=== PATIENT | male | born 1950 | race Hispanic/Latino ===

== ENCOUNTER 2016-05-03 12:30 | Inpatient (IN) | payer OTHER ==
[2016-05-03 12:30] VITALS: BMI 34.2
[2016-05-03] MEDS ORDERED: Vancomycin 1gm in NS 250ml 250 ML IVPB STA (13:39)
[2016-05-03] MEDS ORDERED: Piperacill/Tazo 4.5gm in NS 100 ML IVPB STA (13:39)
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
[2016-05-03 14:41] LABS: ADD MANUAL DIFF? NO
[2016-05-03 14:58] LABS: ALB/GLOB RATIO 0.7 (1.1-1.8); ALKALINE PHOSPHATASE 185 U/L (38-133); ALT/SGPT 20 U/L (7-56); AST/SGOT 33 U/L (15-59); BLOOD UREA NITROGEN 12 mg/dL (7-21); CALCIUM 8.6 mg/dL (8.4-10.5); CARBON DIOXIDE 26 mmol/L (21-33); CHLORIDE 95 mmol/L (98-107); GFR AFRICAN-AMERICAN > 60; GLUCOSE,RANDOM 244 mg/dL (70-110); PHOSPHOROUS 2.8 mg/dL (2.5-4.5); POTASSIUM 4.1 mmol/L (3.6-5.0); SODIUM 130 mmol/L (132-148); TOTAL PROTEIN 7.3 g/dL (5.8-8.3)
[2016-05-03 14:59] LABS: BASO # 0.03 K/mm3 (0.0-2.0); BASO % 0.1 % (0.0-3.0); EOS # 0.5 (0.0-0.7); EOS % 2.3 % (1.5-5.0); GRAN # 17.64 (1.4-6.5); GRAN % 85.5 % (50.0-68.0); HEMATOCRIT 37.4 % (42.0-52.0); LYMPH % 4.7 % (22.0-35.0); MEAN CELL VOLUME 88.6 fL (80.0-105.0); MEAN CORPUSCULAR HEMOGLOBIN 30.8 pg (25.0-35.0); MEAN CORPUSCULAR HGB CONC 34.8 g/dl (31.0-37.0); MONO # 1.5 (0.1-0.6); MONO % 7.4 % (1.0-6.0); PLATELET COUNT 414 10^3/uL (120.0-450.0); RED CELL DISTRIBUTION WIDTH 12.6 % (11.5-14.5); WHITE BLOOD COUNT 20.6 10^3/ul (4.5-11.0)
[2016-05-03 15:05] LABS: INR 1.1 (0.93-1.08); PARTIAL THROMBOPLASTIN TIME 30.7 Seconds (23.7-30.8)
[2016-05-03 16:08] LABS: VENOUS BLOOD PH 7.38 (7.32-7.43)
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
--- NOTE | 2016-05-03 17:22 | RAD ---
HISTORY: Sepsis Patient COMPARISON: 02/05/2016 FINDINGS: LUNGS: There is mild pulmonary venous congestion. There is no focal consolidation PE PLEURA: No significant pleural effusion identified, no pneumothorax apparent. CARDIOVASCULAR: Normal. OSSEOUS STRUCTURES: No significant abnormalities. VISUALIZED UPPER ABDOMEN: Normal. OTHER FINDINGS: None. IMPRESSION: Persistent mild pulmonary venous congestion. No lobar pneumonia.
--- NOTE | 2016-05-03 17:22 | CARD ---
APPROVED REPORT EKG Measurement Heart [id number] <Conclusion> Normal sinus rhythm Normal ECG
--- NOTE | 2016-05-03 17:47 | CT ---
PROCEDURE: CT Neck, Chest, Abdomen and Pelvis with contrast HISTORY: abscess vs. cellulitis to neck right buttock COMPARISON: None. TECHNIQUE: Contrast dose: 150 Omnipaque 350 Radiation dose: Total exam DLP = 2581.34 mGy-cm. FINDINGS: CT OF THE NECK: There is moderate skin thickening and subcutaneous stranding seen at the mid to upper posterior neck. There is heterogeneous subcutaneous density at the midline posterior upper neck measures 3.3 centimeter in the transverse diameter. No evidence of drainable or discrete abscess formation. PHARYNX: Nasopharynx: Unremarkable. Oropharnx: Unremarkable. Hypopharynx: Unremarkable. LYMPH NODES: Unremarkable. VASCULATURE: Unremarkable. GLANDS: Unremarkable. CERVICAL SPINE: Moderate degenerative changes at the mid and lower cervical spine. CT OF THE CHEST: LUNGS: No evidence of acute pathology in the lungs. MEDIASTINUM: Unremarkable thoracic aorta. No aneurysm or dissection. Heart is mildly enlarged. Pulmonary trunk is mildly enlarged. No lymphadenopathy. PLEURA: No pleural fluid. No pneumothorax. BONES: No fracture. No destructive lesion. CT OF THE ABDOMEN AND PELVIS: LIVER: Unremarkable. No mass lesion or ductal dilatation. GALLBLADDER AND BILE DUCTS: Status post cholecystectomy. PANCREAS: Unremarkable. No mass or ductal dilatation. SPLEEN: Mild splenomegaly noted measures up to 14.5 centimeter in the AP diameter. ADRENALS: Unremarkable. KIDNEYS AND URETERS: Nonspecific mild perinephric stranding more prominent on the left side. Mild decrease enhancement of the left kidney compared to the right of uncertain etiology. No evidence of hydronephrosis. BLADDER: Unremarkable. No mass. REPRODUCTIVE: Unremarkable. APPENDIX: No evidence of appendicitis STOMACH AND BOWEL: Unremarkable. No obstruction. No mural thickening. No evidence of acute pathology. PERITONEUM: Unremarkable. No free fluid. No free air. LYMPH NODES: Unremarkable. No enlarged lymph nodes. VASCULATURE: Unremarkable. No aortic aneurysm. BONES: No fracture or focal lesion. OTHER FINDINGS: There is a skin thickening and subcutaneous stranding seen at the medial aspect of the right buttock. There is also large phlegmon at the medial posterior aspect of the right buttock. No evidence of discrete drainable collection in this study. IMPRESSION: Skin and subcutaneous thickening and stranding seen at the posterior mid to upper neck associated with subcutaneous density suggestive of infection/inflammatory process and cellulitis. No definite evidence of discrete abscess formation. Skin thickening and subcutaneous phlegmon at the medial posterior aspect of the right buttock without evidence of drainable fluid collection. The possibility of an early abscess formation is not totally excluded. If indicated follow-up exam is suggested. Mild stranding surrounding the left kidney and slight decreased enhancement of the left kidney compared to the right. Correlate clinically for possible infectious process/pyelonephritis. No evidence of acute pathology in the chest.
[2016-05-03 19:44] LABS: VENOUS BLOOD PH 7.38 (7.32-7.43)
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
[2016-05-03] MEDS: Insulin Reg-LOW-Coverage SC SCH (21:59)
[2016-05-03] MEDS: Albuterol-Ipratrop 3 mg / 0.5 (3 ml) UD IH PRN (22:05)
[2016-05-03] MEDS ORDERED: Influenza Vaccine 45 MCG/0.5 ml IM ONE (22:53)
[2016-05-03] MEDS ORDERED: Pneumococcal 23-Valent Vaccine IM ONE (22:53)
[2016-05-03] MEDS: Piperacillin/Tazobact 3.375 gm 100 ML IVPB SCH (23:49)
[2016-05-04] MEDS ORDERED: Piperacillin/Tazobact 3.375 gm 100 ML IVPB SCH
[2016-05-04] MEDS: Piperacillin/Tazobact 3.375 gm 100 ML IVPB SCH ×2 (05:08→12:24)
[2016-05-04] MEDS: Vancomycin 1gm in NS 250ml 250 ML IVPB SCH ×2 (06:18→19:19)
[2016-05-04 07:09] LABS: ADD MANUAL DIFF? NO
[2016-05-04 07:16] LABS: BASO # 0.03 K/mm3 (0.0-2.0); BASO % 0.2 % (0.0-3.0); EOS # 0.7 (0.0-0.7); EOS % 3.4 % (1.5-5.0); GRAN # 15.87 (1.4-6.5); GRAN % 81.9 % (50.0-68.0); HEMATOCRIT 35.5 % (42.0-52.0); LYMPH # 1.3 (1.2-3.4); LYMPH % 6.9 % (22.0-35.0); MEAN CELL VOLUME 88.5 fL (80.0-105.0); MEAN CORPUSCULAR HEMOGLOBIN 29.4 pg (25.0-35.0); MEAN CORPUSCULAR HGB CONC 33.2 g/dl (31.0-37.0); MEAN PLATELET VOLUME 9.6 fl (7.0-11.0); MONO # 1.5 (0.1-0.6); MONO % 7.6 % (1.0-6.0); PLATELET COUNT 410 10^3/uL (120.0-450.0); RED CELL DISTRIBUTION WIDTH 12.8 % (11.5-14.5); WHITE BLOOD COUNT 19.4 10^3/ul (4.5-11.0)
[2016-05-04 07:30] LABS: ALB/GLOB RATIO 0.8 (1.1-1.8); ALKALINE PHOSPHATASE 177 U/L (38-133); ALT/SGPT 46 U/L (7-56); AST/SGOT 26 U/L (15-59); BILIRUBIN,TOTAL 0.7 mg/dL (0.2-1.3); BLOOD UREA NITROGEN 10 mg/dL (7-21); CALCIUM 8.3 mg/dL (8.4-10.5); CARBON DIOXIDE 28 mmol/L (21-33); GFR AFRICAN-AMERICAN > 60; GLUCOSE,RANDOM 274 mg/dL (70-110); POTASSIUM 4.6 mmol/L (3.6-5.0); SODIUM 133 mmol/L (132-148); TOTAL PROTEIN 6.4 g/dL (5.8-8.3)
[2016-05-04 07:33] LABS: CHLORIDE 97 mmol/L (95-110)
[2016-05-04] MEDS: Budesonide 0.5 mg/2 ml Inhal Susp UD IH SCH ×2 (07:38→21:12)
[2016-05-04] MEDS: Arformoterol 15 mcg/2 ml Inh Sol IH SCH ×2 (07:39→21:12)
[2016-05-04] MEDS ORDERED: Budesonide 0.5 mg/2 ml Inhal Susp UD IH SCH (08:00)
[2016-05-04] MEDS ORDERED: Arformoterol 15 mcg/2 ml Inh Sol IH SCH (08:00)
--- NOTE | 2016-05-04 08:17 | CP.PCM.PN ---
Subjective - Date & Time of Evaluation Date of Evaluation: 05/04/16 Time of Evaluation: 06:40 - Subjective Subjective: Pt seen and evaluated at bedside. Pt claims pain from R buttock remains the same, as well as the posterior neck and ankle. Denies f/c/n/v. Objective - Vital Signs/Intake and Output Vital Signs (last 24 hours): Temp Pulse Resp BP Pulse Ox 99.8 F H 94 H 20 150/64 99 05/03/16 22:36 05/03/16 22:36 05/03/16 22:36 05/03/16 22:36 05/03/16 19:37 Intake and Output: 05/04/16 05/04/16 06:59 18:59 Intake Total 810 Output Total 1050 Balance -240 - Medications Medications: Current Medications Albuterol/Ipratropium (Duoneb 3 Mg/0.5 Mg (3 Ml) Ud) 3 ml IH [id number] PRN PRN Reason: Shortness of Breath Last Admin: 05/03/16 22:05 Dose: 3 ml Arformoterol Tartrate (Brovana) 15 mcg IH [id number] [facility] Last Admin: 05/04/16 07:39 Dose: 15 mcg Budesonide (Pulmicort Respules) 1 mg IH [id number] JT Last Admin: 05/04/16 07:38 Dose: 1 mg Enoxaparin Sodium (Lovenox) 40 mg SC DAILY JT PRN Reason: Protocol Vancomycin HCl (Vancomycin 1gm) 250 mls @ 167 mls/hr IVPB Q12H JT PRN Reason: Protocol Last Admin: 05/04/16 06:18 Dose: 167 mls/hr Piperacillin Sod/Tazobactam Sod (Zosyn 3.375 In Ns 100ml) 100 mls @ 200 mls/hr IVPB Q6 JT PRN Reason: Protocol Stop: 05/11/16 00:01 Last Admin: 05/04/16 05:08 Dose: 200 mls/hr Insulin Human Regular (Humulin R Low) 0 units SC ACHS JT PRN Reason: Protocol Last Admin: 05/03/16 21:59 Dose: 2 units Nystatin (Nystop Topical Powder) 1 gm TOP BID JT Pantoprazole Sodium (Protonix Ec Tab) 40 mg PO DAILY JT Tiotropium [place] (Spiriva) 18 mcg IH DAILY JT - Labs Labs: 05/04/16 06:45 05/04/16 06:45 PT 11.9 Seconds (9.9-11.8) H 05/03/16 14:30 INR 1.10 (0.93-1.08) H 05/03/16 14:30 APTT 30.7 Seconds (23.7-30.8) 05/03/16 14:30 - Additional Findings Additional findings: - Constitutional Appears: No Acute Distress - Eye Exam Eye Exam: EOMI - ENT Exam ENT Exam: Mucous Membranes Moist - Neck Exam Additional comments: Posterior neck: 5 cm area indurated with central area of ulceration, no drainage. - Respiratory Exam Respiratory Exam: NORMAL BREATHING PATTERN - Cardiovascular Exam Cardiovascular Exam: RRR - Rectal Exam Additional comments: 4cm x 2cm x 1.5 cm deep induration and erythema with purulent discharge. Less discharge than day prior. - Extremities Exam Additional comments: 5 cm x 3cm area of erythema, with central induration and minimal fluctuance. Draining clear d/c. - Neurological Exam Neurological exam: Alert, Oriented x3 - Psychiatric Exam Psychiatric exam: Normal Affect, Normal Mood - Skin Skin Exam: Warm Assessment and Plan - Assessment and Plan (Free Text) Plan: 65 yo M w/PMHx of DM, one week history of R buttock abscess, neck sebaceous cyst. Initial presentation: Code sepsis, WBC 20.6, lactate 2.0, T 100.6F.: CT neck/chest/abd/pelvis (05/03/2016): skin and subcutaneous thickening and stranding posterior neck suggestive of cellulitis, no discrete abscess. skin thickening and phlegmon of posterior aspect of R buttock with early abscess formation (see full report) abx pending wound cx Monitor labs and trend fever. WBC today decreased to 19.4 ID consult warm compress q8h OR tomorrow Further recs as per Dr. Bernard Lewis PGY-1
[2016-05-04] MEDS: Insulin Reg-LOW-Coverage SC SCH ×4 (08:24→21:59)
[2016-05-04] MEDS ORDERED: Oxycodone/Acetaminophen 5/325 mg Tab PO PRN (08:31)
[2016-05-04] MEDS: Nystatin 100,000 Units/gm Topical Pow(15 gm) TOP SCH ×2 (09:39→17:45)
[2016-05-04] MEDS: Enoxaparin 40 mg Syringe SC SCH (09:39)
[2016-05-04] MEDS: Pantoprazole 40 mg EC Tab PO SCH (09:40)
[2016-05-04] MEDS: Tiotropium 18 mcg Cap For Inhalation IH SCH (12:25)
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
--- NOTE | 2016-05-04 16:22 | CP.PCM.PN ---
<Grayson Patel - Last Filed: 05/04/16 18:19> Subjective - Date & Time of Evaluation Date of Evaluation: 05/04/16 Time of Evaluation: 07:30 - Subjective Subjective: Dr. Patel PGY 1 Hospitalist Note Patient seen and evaluated at bedside. He is resting comfortably in bed. He reports having some tenderness on the back of his neck and buttock. He notes having lesions on his body from moving into his sister's home. He states it is a clean place and has not noticed any insects or rodents. He reports being hungry as he has been kept NPO for possible abscess drainage. He denies any fever, chills, nausea, vomiting, chest pain, SOB, or headache. When asked about diet, he says reports eating normally and has not been told he needs to be on a diabetic diet. A 12 point review of systems was performed and negative except where indicated above. Objective - Vital Signs/Intake and Output Vital Signs (last 24 hours): Temp Pulse Resp BP Pulse Ox 98.6 F 87 20 135/74 95 05/04/16 15:57 05/04/16 15:57 05/04/16 15:57 05/04/16 15:57 05/04/16 15:57 Intake and Output: 05/04/16 05/04/16 06:59 18:59 Intake Total 810 360 Output Total 1050 500 Balance -240 -140 - Medications Medications: Current Medications Albuterol/Ipratropium (Duoneb 3 Mg/0.5 Mg (3 Ml) Ud) 3 ml IH [id number] PRN PRN Reason: Shortness of Breath Last Admin: 05/03/16 22:05 Dose: 3 ml Arformoterol Tartrate (Brovana) 15 mcg IH [id number] JT Last Admin: 05/04/16 07:39 Dose: 15 mcg Budesonide (Pulmicort Respules) 1 mg IH [id number] JT Last Admin: 05/04/16 07:38 Dose: 1 mg Enoxaparin Sodium (Lovenox) 40 mg SC DAILY JT PRN Reason: Protocol Last Admin: 05/04/16 09:39 Dose: Not Given Vancomycin HCl (Vancomycin 1gm) 250 mls @ 167 mls/hr IVPB Q12H JT PRN Reason: Protocol Last Admin: 05/04/16 06:18 Dose: 167 mls/hr Ampicillin Sodium/Sulbactam (Sodium 3 gm/ Sodium Chloride) 100 mls @ 200 mls/ hr IVPB Q6 JT PRN Reason: Protocol Insulin Human Regular (Humulin R Low) 0 units SC ACHS JT PRN Reason: Protocol Last Admin: 05/04/16 12:25 Dose: 3 units Nystatin (Nystop Topical Powder) 1 gm TOP BID JT Last Admin: 05/04/16 09:39 Dose: 1 gm Oxycodone/Acetaminophen (Percocet 5/325 Mg Tab) 1 tab PO Q4H PRN PRN Reason: Pain, moderate (4-7) Stop: 05/07/16 08:32 Pantoprazole Sodium (Protonix Ec Tab) 40 mg PO DAILY [facility] Last Admin: 05/04/16 09:40 Dose: Not Given Tiotropium [place] (Spiriva) 18 mcg IH DAILY [facility] Last Admin: 05/04/16 12:25 Dose: 18 mcg - Labs Labs: 05/04/16 06:45 05/04/16 06:45 PT 11.9 Seconds (9.9-11.8) H 05/03/16 14:30 INR 1.10 (0.93-1.08) H 05/03/16 14:30 APTT 30.7 Seconds (23.7-30.8) 05/03/16 14:30 - Constitutional Appears: Non-toxic, No Acute Distress - Head Exam Head Exam: ATRAUMATIC. absent: NORMAL INSPECTION (cellulitic, fluctuant area on posterior of head and neck) - Eye Exam Eye Exam: EOMI, Normal appearance, PERRL Pupil Exam: NORMAL ACCOMODATION, PERRL - ENT Exam ENT Exam: Mucous Membranes Moist. absent: Normal Oropharynx (poor dentition) - Neck Exam Neck Exam: Tenderness (fluctuant are on neck). absent: Normal Inspection ( cellulitic, fluctuant area on posterior of head and neck) - Respiratory Exam Respiratory Exam: Clear to Ausculation Bilateral, NORMAL BREATHING PATTERN. absent: Rales, Rhonchi, Wheezes - Cardiovascular Exam Cardiovascular Exam: REGULAR RHYTHM, +S1, +S2 - GI/Abdominal Exam GI & Abdominal Exam: Soft, Normal Bowel Sounds. absent: Tenderness - Extremities Exam Extremities Exam: Normal Capillary Refill. absent: Normal Inspection (abscess on right buttock cleaned and dressed, multiple abrasions on hands and legs, draining abscess on right hand.), Tenderness - Back Exam Back Exam: absent: NORMAL INSPECTION (multple erythemetous lesions on back), tenderness - Neurological Exam Neurological Exam: Alert, Awake, CN II-XII Intact, Oriented x3 - Psychiatric Exam Psychiatric exam: Normal Affect, Normal Mood - Skin Skin Exam: Rash (around groin), Warm Assessment and Plan - Assessment and Plan (Free Text) Assessment: 65 yo male ith PMH of asthma, copd, emphysema, dm presented to ED with sepsis 2/ 2 multiple skin abscess with hyperglycemia. CT neck, chest, abd, pelvis showed skin and subcutaneous thickening and stranding posterior neck suggestive of cellulitis, no discrete abscess. skin thickening and phlegmon of posterior aspect of R buttock with early abscess formation. Plan: 1. sepsis 2/2 mutiple skin abscess * ID consulted help appreciated * sugery consulted, help appreciated * leukocytosis of 19.4 today * CT neck, chest, abdm pelvis- skin and subcutaneous thickening and stranding posterior neck suggestive of cellulitis, no discrete abscess. skin thickening and phlegmon of posterior aspect of R buttock with early abscess formation [ see full report] * continue zosyn and vanco * warm compresses * procalcitonin wnl * HIV non reactive * wound cultures show staph aureus growth * NPO after midnight for OR tomorrow 2. DM/ hyperglycemia * ISSS-low * accuchecks ACHS * hgbA1c 11.3 * counselled on importance of medication and diet compliance 3. tinea cruris * nystain powder 4. asthma, COPD, emphysema * cont home meds advair and spiriva * start duoneb q6 prn 5. ppx * protonix * lovenox SX Assessment and plan discussed with attending physician <Beverly Chand - Last Filed: 05/05/16 17:32> Objective - Vital Signs/Intake and Output Vital Signs (last 24 hours): Temp Pulse Resp BP Pulse Ox 98.6 F 76 12 155/89 H 96 05/05/16 14:40 05/05/16 14:40 05/05/16 14:40 05/05/16 14:40 05/05/16 14:40 Intake and Output: 05/05/16 05/05/16 06:59 18:59 Intake Total 720 420 Output Total 1600 400 Balance -880 20 - Medications Medications: Current Medications Albuterol/Ipratropium (Duoneb 3 Mg/0.5 Mg (3 Ml) Ud) 3 ml IH [id number] PRN PRN Reason: Shortness of Breath Last Admin: 05/03/16 22:05 Dose: 3 ml Arformoterol Tartrate (Brovana) 15 mcg IH [id number] [facility] Last Admin: 05/05/16 09:29 Dose: 15 mcg Budesonide (Pulmicort Respules) 1 mg IH [id number] [facility] Last Admin: 05/05/16 09:29 Dose: 1 mg Enoxaparin Sodium (Lovenox) 40 mg SC DAILY [facility] PRN Reason: Protocol Last Admin: 05/05/16 09:03 Dose: Not Given Vancomycin HCl (Vancomycin 1gm) 250 mls @ 167 mls/hr IVPB Q12H [facility] PRN Reason: Protocol Last Admin: 05/05/16 07:35 Dose: 167 mls/hr Insulin Human Regular (Humulin R Med) 0 units SC ACHS [facility] PRN Reason: Protocol Last Admin: 05/05/16 16:49 Dose: 5 units Morphine Sulfate (Morphine) 4 mg IVP Q4H PRN PRN Reason: Pain, severe (8-10) Mupirocin (Bactroban Ointment) 0 gm NS BID [facility] Stop: 05/10/16 10:01 Nystatin (Nystop Topical Powder) 0 gm TOP BID [facility] Oxycodone/Acetaminophen (Percocet 5/325 Mg Tab) 1 tab PO Q4H PRN PRN Reason: Pain, moderate (4-7) Stop: 05/07/16 08:32 Pantoprazole Sodium (Protonix Ec Tab) 40 mg PO DAILY [facility] Last Admin: 05/05/16 09:04 Dose: Not Given Tiotropium [place] (Spiriva) 18 mcg IH DAILY [facility] Last Admin: 05/05/16 16:50 Dose: 18 mcg - Labs Labs: 05/05/16 06:50 05/05/16 06:50 PT 11.9 Seconds (9.9-11.8) H 05/03/16 14:30 INR 1.10 (0.93-1.08) H 05/03/16 14:30 APTT 30.7 Seconds (23.7-30.8) 05/03/16 14:30 Attending/Attestation - Attestation I have personally seen and examined this patient.: Yes I have fully participated in the care of the patient.: Yes I have reviewed all pertinent clinical information, including history, physical exam and plan: Yes Notes (Text): I have seen and examined patient at bedside with the resident. Agree with the above note with the following additions/ exceptions: This is 65 year old male with obesity, uncontrolled DM-2, non compliance with medications, asthma, copd, cholecystectomy who got admitted for multiple skin lesions including carbuncle on the nape of neck and right buttocks and cellulitis on right thumb. He failed outpatient cipro and warm compresses. PMD advised the patient to come to ED. CT neck, chest, abdomen, pelvis showed cellulitis and early abscess formation. ID and surgery consult appreciated. Plan for possible I&D. HV is negative. PWound culture is growing staph aureus. Continue vanco and unasyn. Continue nystatn powder for tinea cruris. HBA1C is 11.3. Diabetic education provided by me. Will order for official diabetic teaching. He needs to learn how to self inject insulin. Start medium ISS coverage. Dr Beverly Chand
[2016-05-04] MEDS: Ampicillin/Sulbactam 3 GM in Sodium Chloride 0.9% 100 ML IVPB SCH ×2 (18:10→23:24)
[2016-05-05] MEDS: Ampicillin/Sulbactam 3 GM in Sodium Chloride 0.9% 100 ML IVPB SCH (05:19)
[2016-05-05 07:08] LABS: ADD MANUAL DIFF? NO
[2016-05-05 07:14] LABS: BASO # 0.04 K/mm3 (0.0-2.0); BASO % 0.3 % (0.0-3.0); EOS # 0.9 (0.0-0.7); EOS % 5.8 % (1.5-5.0); GRAN # 12.02 (1.4-6.5); GRAN % 76.1 % (50.0-68.0); HEMATOCRIT 36.1 % (42.0-52.0); LYMPH # 1.6 (1.2-3.4); MEAN CELL VOLUME 88.9 fL (80.0-105.0); MEAN CORPUSCULAR HEMOGLOBIN 29.6 pg (25.0-35.0); MEAN CORPUSCULAR HGB CONC 33.2 g/dl (31.0-37.0); MEAN PLATELET VOLUME 9.8 fl (7.0-11.0); MONO # 1.2 (0.1-0.6); MONO % 7.8 % (1.0-6.0); PLATELET COUNT 439 10^3/uL (120.0-450.0); RED CELL DISTRIBUTION WIDTH 12.6 % (11.5-14.5); WHITE BLOOD COUNT 15.8 10^3/ul (4.5-11.0)
[2016-05-05 07:29] LABS: ALB/GLOB RATIO 0.7 (1.1-1.8); ALKALINE PHOSPHATASE 181 U/L (38-133); ALT/SGPT 31 U/L (7-56); AST/SGOT 28 U/L (15-59); BILIRUBIN,TOTAL 0.4 mg/dL (0.2-1.3); BLOOD UREA NITROGEN 12 mg/dL (7-21); CALCIUM 8.3 mg/dL (8.4-10.5); CARBON DIOXIDE 28 mmol/L (21-33); CHLORIDE 98 mmol/L (95-110); GFR AFRICAN-AMERICAN > 60; GLUCOSE,RANDOM 291 mg/dL (70-110); SODIUM 134 mmol/L (132-148); TOTAL PROTEIN 6.5 g/dL (5.8-8.3)
[2016-05-05 07:34] LABS: POTASSIUM 4.3 mmol/L (3.6-5.0)
[2016-05-05] MEDS: Vancomycin 1gm in NS 250ml 250 ML IVPB SCH ×2 (07:35→19:45)
[2016-05-05] MEDS: Insulin Reg-LOW-Coverage SC SCH (08:46)
[2016-05-05] MEDS: Enoxaparin 40 mg Syringe SC SCH (09:03)
[2016-05-05] MEDS: Pantoprazole 40 mg EC Tab PO SCH (09:04)
[2016-05-05] MEDS: Budesonide 0.5 mg/2 ml Inhal Susp UD IH SCH ×2 (09:29→20:07)
[2016-05-05] MEDS: Arformoterol 15 mcg/2 ml Inh Sol IH SCH ×2 (09:29→20:07)
[2016-05-05] MEDS: Nystatin 100,000 Units/gm Topical Pow(15 gm) TOP SCH ×2 (11:00→19:06)
--- NOTE | 2016-05-05 11:43 | CP.PCM.PN ---
<Grayson Patel - Last Filed: 05/05/16 13:44> Subjective - Date & Time of Evaluation Date of Evaluation: 05/05/16 Time of Evaluation: 07:45 - Subjective Subjective: Dr. Patel PGY 1 Hospitalist note Patient seen and evaluated at bedside. He states he is feeling well though his buttock remains uncomfortable. He denies any fever or chills. He says the wound on his buttock continues to drain and he is awaiting surgery to take him to the OR. He denies any discomfort on the back of his neck. He requests more warm compresses for his neck. Also, he notes he had some shortness of breath last night which was alleviated by a breathing treatment. While in the patient' s room, I noticed he had candy bars and sodas. A long discussion was performed with him about the importance of diabetic diet and the need for him to start insulin. After the discussion, we agreed he needs to meet with a conservation educator. A 12 point review of systems was performed and negative except where indicated above. Objective - Vital Signs/Intake and Output Vital Signs (last 24 hours): Temp Pulse Resp BP Pulse Ox 98.7 F 74 20 146/83 97 05/05/16 08:00 05/05/16 08:00 05/05/16 08:00 05/05/16 08:00 05/05/16 08:00 Intake and Output: 05/05/16 05/05/16 06:59 18:59 Intake Total 720 420 Output Total 1600 400 Balance -880 20 - Medications Medications: Current Medications Albuterol/Ipratropium (Duoneb 3 Mg/0.5 Mg (3 Ml) Ud) 3 ml IH [id number] PRN PRN Reason: Shortness of Breath Last Admin: 05/03/16 22:05 Dose: 3 ml Arformoterol Tartrate (Brovana) 15 mcg IH [id number] [facility] Last Admin: 05/05/16 09:29 Dose: 15 mcg Budesonide (Pulmicort Respules) 1 mg IH [id number] [facility] Last Admin: 05/05/16 09:29 Dose: 1 mg Enoxaparin Sodium (Lovenox) 40 mg SC DAILY [facility] PRN Reason: Protocol Last Admin: 05/05/16 09:03 Dose: Not Given Vancomycin HCl (Vancomycin 1gm) 250 mls @ 167 mls/hr IVPB Q12H JT PRN Reason: Protocol Last Admin: 05/05/16 07:35 Dose: 167 mls/hr Insulin Human Regular (Humulin R Med) 0 units SC ACHS JT PRN Reason: Protocol Nystatin (Nystop Topical Powder) 1 gm TOP BID [facility] Last Admin: 05/04/16 17:45 Dose: 1 gm Oxycodone/Acetaminophen (Percocet 5/325 Mg Tab) 1 tab PO Q4H PRN PRN Reason: Pain, moderate (4-7) Stop: 05/07/16 08:32 Pantoprazole Sodium (Protonix Ec Tab) 40 mg PO DAILY [facility] Last Admin: 05/05/16 09:04 Dose: Not Given Tiotropium [place] (Spiriva) 18 mcg IH DAILY [facility] Last Admin: 05/04/16 12:25 Dose: 18 mcg - Labs Labs: 05/05/16 06:50 05/05/16 06:50 PT 11.9 Seconds (9.9-11.8) H 05/03/16 14:30 INR 1.10 (0.93-1.08) H 05/03/16 14:30 APTT 30.7 Seconds (23.7-30.8) 05/03/16 14:30 - Constitutional Appears: Non-toxic, No Acute Distress - Head Exam Head Exam: ATRAUMATIC. absent: NORMAL INSPECTION (erythematous, swollen area on back of neck) - Eye Exam Eye Exam: EOMI, Normal appearance, PERRL Pupil Exam: NORMAL ACCOMODATION, PERRL - ENT Exam ENT Exam: Mucous Membranes Moist. absent: Normal Oropharynx (poor dentition) - Neck Exam Neck Exam: absent: Normal Inspection (swelling on posterior of neck) - Respiratory Exam Respiratory Exam: Clear to Ausculation Bilateral, NORMAL BREATHING PATTERN. absent: Rales, Rhonchi, Wheezes - Cardiovascular Exam Cardiovascular Exam: REGULAR RHYTHM, +S1, +S2. absent: Gallop, Rubs, Murmur - GI/Abdominal Exam GI & Abdominal Exam: Soft, Normal Bowel Sounds. absent: Tenderness - Extremities Exam Extremities Exam: absent: Normal Inspection (multiple non healing lesions) - Back Exam Back Exam: absent: NORMAL INSPECTION (drainging abscess on right buttock) - Neurological Exam Neurological Exam: Alert, Awake, CN II-XII Intact, Oriented x3 - Psychiatric Exam Psychiatric exam: Normal Affect, Normal Mood - Skin Skin Exam: Dry, Warm Assessment and Plan - Assessment and Plan (Free Text) Assessment: 65 yo male ith PMH of asthma, copd, emphysema, dm presented to ED with sepsis 2/ 2 multiple skin abscess with hyperglycemia. CT neck, chest, abd, pelvis showed skin and subcutaneous thickening and stranding posterior neck suggestive of cellulitis, no discrete abscess. skin thickening and phlegmon of posterior aspect of R buttock with early abscess formation. Plan: 1. sepsis 2/2 mutiple skin abscess * ID consulted help appreciated * sugery consulted, help appreciated * leukocytosis of 19.4 today * CT neck, chest, abdm pelvis- skin and subcutaneous thickening and stranding posterior neck suggestive of cellulitis, no discrete abscess. skin thickening and phlegmon of posterior aspect of R buttock with early abscess formation [ see full report] * continue unisyn and vanco * warm compresses * procalcitonin wnl * HIV non reactive * wound cultures show MRSA growth * I&D by surgery later today * pain control 2. DM/ hyperglycemia * ISSS-med * accuchecks ACHS * hgbA1c 11.3 * counselled on importance of medication and diet compliance * start NPH 70/30 5U SC Q12H * diabetic counseling ordered 3. tinea cruris * nystain powder 4. asthma, COPD, emphysema * cont home meds advair and spiriva * cont duoneb q6 prn 5. ppx * protonix * lovenox SX Assessment and plan discussed with attending physician <Beverly Chand - Last Filed: 05/05/16 17:34> Objective - Vital Signs/Intake and Output Vital Signs (last 24 hours): Temp Pulse Resp BP Pulse Ox 98 F 80 20 113/57 L 96 05/05/16 16:00 05/05/16 16:00 05/05/16 16:00 05/05/16 16:00 05/05/16 16:00 Intake and Output: 05/05/16 05/05/16 06:59 18:59 Intake Total 720 420 Output Total 1600 400 Balance -880 20 - Medications Medications: Current Medications Albuterol/Ipratropium (Duoneb 3 Mg/0.5 Mg (3 Ml) Ud) 3 ml IH [id number] PRN PRN Reason: Shortness of Breath Last Admin: 05/03/16 22:05 Dose: 3 ml Arformoterol Tartrate (Brovana) 15 mcg IH [id number] [facility] Last Admin: 05/05/16 09:29 Dose: 15 mcg Budesonide (Pulmicort Respules) 1 mg IH [id number] [facility] Last Admin: 05/05/16 09:29 Dose: 1 mg Enoxaparin Sodium (Lovenox) 40 mg SC DAILY [facility] PRN Reason: Protocol Last Admin: 05/05/16 09:03 Dose: Not Given Vancomycin HCl (Vancomycin 1gm) 250 mls @ 167 mls/hr IVPB Q12H JT PRN Reason: Protocol Last Admin: 05/05/16 07:35 Dose: 167 mls/hr Insulin Human Regular (Humulin R Med) 0 units SC ACHS [facility] PRN Reason: Protocol Last Admin: 05/05/16 16:49 Dose: 5 units Morphine Sulfate (Morphine) 4 mg IVP Q4H PRN PRN Reason: Pain, severe (8-10) Mupirocin (Bactroban Ointment) 0 gm NS BID [facility] Stop: 05/10/16 10:01 Nystatin (Nystop Topical Powder) 0 gm TOP BID [facility] Oxycodone/Acetaminophen (Percocet 5/325 Mg Tab) 1 tab PO Q4H PRN PRN Reason: Pain, moderate (4-7) Stop: 05/07/16 08:32 Pantoprazole Sodium (Protonix Ec Tab) 40 mg PO DAILY [facility] Last Admin: 05/05/16 09:04 Dose: Not Given Tiotropium [place] (Spiriva) 18 mcg IH DAILY [facility] Last Admin: 05/05/16 16:50 Dose: 18 mcg - Labs Labs: 05/05/16 06:50 05/05/16 06:50 PT 11.9 Seconds (9.9-11.8) H 05/03/16 14:30 INR 1.10 (0.93-1.08) H 05/03/16 14:30 APTT 30.7 Seconds (23.7-30.8) 05/03/16 14:30 Attending/Attestation - Attestation I have personally seen and examined this patient.: Yes I have fully participated in the care of the patient.: Yes I have reviewed all pertinent clinical information, including history, physical exam and plan: Yes Notes (Text): I have seen and examined patient at bedside with the resident. Agree with the above note with the following additions/ exceptions: This is 65 year old male with obesity, uncontrolled DM-2, non compliance with medications, asthma, copd, cholecystectomy who got admitted for multiple skin lesions including carbuncle on the nape of neck and right buttocks and cellulitis on right thumb. He failed outpatient cipro and warm compresses. CT neck, chest, abdomen, pelvis showed cellulitis and early abscess formation. ID and surgery consult appreciated. Plan for I&D today. HV is negative. Wound culture is growing staph aureus. Continue vanco and unasyn. Continue nystatin powder for tinea cruris. HBA1C is 11.3. Diabetic education provided by me. Ordered official diabetic teaching. He needs to learn how to self inject insulin. Start medium ISS coverage. Will start humilin 70/30 after his I&D. Upon discharge patient will follow up with Dr Vallecillo. Dr Beverly Chand
[2016-05-05] MEDS: Insulin Reg-MEDIUM-Coverage SC SCH ×3 (12:00→23:00)
[2016-05-05] MEDS ORDERED: Propofol 10 mg/ml Inj (20 ML) ONE ×2 (12:20→12:39)
[2016-05-05] MEDS ORDERED: Lidocaine 1% Inj (20ml) ONE (12:22)
--- NOTE | 2016-05-05 13:10 | PCM.SURG1 ---
Surgeon's Initial Post Op Note - Surgeon's Notes Surgeon: Dr. Wagner Dietary Cook: Dr. Leiva PGY1 Type of Anesthesia: MAC Pre-Operative Diagnosis: R gluteal abscess Operative Findings: see dictation Post-Operative Diagnosis: same Operation Performed: Incision and drainage of Right gluteal abscess Specimen/Specimens Removed: none Estimated Blood Loss: EBL {In ML}: 10 Blood Products Given: N/A Drains Used: [place] (x4) Post-Op Condition: Good Date of Surgery/Procedure: 05/05/16 Time of Surgery/Procedure: 12:30
[2016-05-05] MEDS ORDERED: HYDROmorphone 0.5 mg/0.5 ml ISec IVP PRN (13:14)
[2016-05-05] MEDS ORDERED: Lactated Ringer's 1,000 ML IV SCH (13:15)
[2016-05-05] MEDS ORDERED: Morphine 4 mg/ml ISec IVP PRN (13:19)
[2016-05-05] MEDS ORDERED: HYDROmorphone 0.5 mg/0.5 ml ISec ONE (14:04)
[2016-05-05] MEDS ORDERED: HYDROmorphone 0.5 mg/0.5 ml ISec IVP ONE (14:07)
--- NOTE | 2016-05-05 15:09 | CP.PCM.PN ---
Subjective - Date & Time of Evaluation Date of Evaluation: 05/05/16 Time of Evaluation: 11:05 - Subjective Subjective: Patient is comfortable in bed, not in distress, less pain in the gluteal area. Objective - Vital Signs/Intake and Output Vital Signs (last 24 hours): Temp Pulse Resp BP Pulse Ox 98.7 F 74 20 146/83 97 05/05/16 08:00 05/05/16 08:00 05/05/16 08:00 05/05/16 08:00 05/05/16 08:00 Intake and Output: 05/05/16 05/05/16 06:59 18:59 Intake Total 720 420 Output Total 1600 400 Balance -880 20 - Medications Medications: Current Medications Albuterol/Ipratropium (Duoneb 3 Mg/0.5 Mg (3 Ml) Ud) 3 ml IH [id number] PRN PRN Reason: Shortness of Breath Last Admin: 05/03/16 22:05 Dose: 3 ml Arformoterol Tartrate (Brovana) 15 mcg IH [id number] [facility] Last Admin: 05/05/16 09:29 Dose: 15 mcg Budesonide (Pulmicort Respules) 1 mg IH [id number] [facility] Last Admin: 05/05/16 09:29 Dose: 1 mg Enoxaparin Sodium (Lovenox) 40 mg SC DAILY [facility] PRN Reason: Protocol Last Admin: 05/05/16 09:03 Dose: Not Given Vancomycin HCl (Vancomycin 1gm) 250 mls @ 167 mls/hr IVPB Q12H JT PRN Reason: Protocol Last Admin: 05/05/16 07:35 Dose: 167 mls/hr Insulin Human Regular (Humulin R Med) 0 units SC ACHS [facility] PRN Reason: Protocol Nystatin (Nystop Topical Powder) 1 gm TOP BID [facility] Last Admin: 05/04/16 17:45 Dose: 1 gm Oxycodone/Acetaminophen (Percocet 5/325 Mg Tab) 1 tab PO Q4H PRN PRN Reason: Pain, moderate (4-7) Stop: 05/07/16 08:32 Pantoprazole Sodium (Protonix Ec Tab) 40 mg PO DAILY [facility] Last Admin: 05/05/16 09:04 Dose: Not Given Tiotropium [place] (Spiriva) 18 mcg IH DAILY [facility] Last Admin: 05/04/16 12:25 Dose: 18 mcg - Labs Labs: 05/05/16 06:50 05/05/16 06:50 PT 11.9 Seconds (9.9-11.8) H 05/03/16 14:30 INR 1.10 (0.93-1.08) H 05/03/16 14:30 APTT 30.7 Seconds (23.7-30.8) 05/03/16 14:30 - Constitutional Appears: Non-toxic, No Acute Distress - Head Exam Head Exam: NORMAL INSPECTION - Neck Exam Neck Exam: absent: Lymphadenopathy, Meningismus - Respiratory Exam Respiratory Exam: Decreased Breath Sounds - Cardiovascular Exam Cardiovascular Exam: +S1, +S2 - GI/Abdominal Exam GI & Abdominal Exam: Soft. absent: Tenderness Assessment and Plan - Assessment and Plan (Free Text) Plan: Assessment Sepsis secondary to gluteal abcess on the right in a patient with a history of skin abscesses, growing methicilin-resistant Staph aureus DM COPD HTN S/P cholecystectomy obesity with BMI 34 Plan Follow up plan for I and D; continue Vancomycin; will order BActroban for the nares Will follow clinically
[2016-05-05] MEDS: Tiotropium 18 mcg Cap For Inhalation IH SCH (16:50)
[2016-05-06] MEDS: Vancomycin 1gm in NS 250ml 250 ML IVPB SCH ×2 (05:49→17:45)
[2016-05-06 07:50] LABS: ADD MANUAL DIFF? NO
[2016-05-06 08:03] LABS: ALB/GLOB RATIO 0.7 (1.1-1.8); ALKALINE PHOSPHATASE 175 U/L (38-133); ALT/SGPT 28 U/L (7-56); AST/SGOT 24 U/L (15-59); BILIRUBIN,TOTAL 0.4 mg/dL (0.2-1.3); BLOOD UREA NITROGEN 10 mg/dL (7-21); CALCIUM 8.5 mg/dL (8.4-10.5); CARBON DIOXIDE 31 mmol/L (21-33); CHLORIDE 97 mmol/L (95-110); GFR AFRICAN-AMERICAN > 60; GLUCOSE,RANDOM 229 mg/dL (70-110); POTASSIUM 4.6 mmol/L (3.6-5.0); SODIUM 135 mmol/L (132-148); TOTAL PROTEIN 6.9 g/dL (5.8-8.3)
[2016-05-06 08:08] LABS: BASO # 0.03 K/mm3 (0.0-2.0); BASO % 0.2 % (0.0-3.0); EOS % 7.1 % (1.5-5.0); GRAN # 10.52 (1.4-6.5); GRAN % 72.6 % (50.0-68.0); HEMATOCRIT 37.9 % (42.0-52.0); MEAN CELL VOLUME 89.4 fL (80.0-105.0); MEAN CORPUSCULAR HEMOGLOBIN 29.2 pg (25.0-35.0); MEAN CORPUSCULAR HGB CONC 32.7 g/dl (31.0-37.0); MEAN PLATELET VOLUME 9.9 fl (7.0-11.0); MONO # 0.9 (0.1-0.6); MONO % 6.1 % (1.0-6.0); PLATELET COUNT 453 10^3/uL (120.0-450.0); RED CELL DISTRIBUTION WIDTH 12.6 % (11.5-14.5); WHITE BLOOD COUNT 14.5 10^3/ul (4.5-11.0)
[2016-05-06] MEDS: Insulin Reg-MEDIUM-Coverage SC SCH ×4 (08:26→23:06)
[2016-05-06] MEDS: Arformoterol 15 mcg/2 ml Inh Sol IH SCH ×2 (09:30→21:29)
[2016-05-06] MEDS: Budesonide 0.5 mg/2 ml Inhal Susp UD IH SCH ×2 (09:30→21:25)
[2016-05-06] MEDS: Tiotropium 18 mcg Cap For Inhalation IH SCH (10:27)
[2016-05-06] MEDS: Pantoprazole 40 mg EC Tab PO SCH (10:27)
[2016-05-06] MEDS: Enoxaparin 40 mg Syringe SC SCH (10:28)
[2016-05-06] MEDS: Nystatin 100,000 Units/gm Topical Pow(15 gm) TOP SCH ×2 (10:28→17:45)
--- NOTE | 2016-05-06 12:56 | CP.PCM.PN ---
Subjective - Date & Time of Evaluation Date of Evaluation: 05/06/16 Time of Evaluation: 08:45 - Subjective Subjective: General Surgery Dr. Wagner Pt S&E @bedside. I&D performed yesterday in OR. pt tolerated procedure well. NAEO. denies pain, F/C, N/V. tolerating diet. Objective - Vital Signs/Intake and Output Vital Signs (last 24 hours): Temp Pulse Resp BP Pulse Ox 98.4 F 75 20 156/91 H 97 05/06/16 07:30 05/06/16 07:30 05/06/16 07:30 05/06/16 07:30 05/06/16 07:30 Intake and Output: 05/06/16 05/06/16 06:59 18:59 Intake Total 900 Output Total 1550 Balance -650 - Medications Medications: Current Medications Albuterol/Ipratropium (Duoneb 3 Mg/0.5 Mg (3 Ml) Ud) 3 ml IH [id number] PRN PRN Reason: Shortness of Breath Last Admin: 05/03/16 22:05 Dose: 3 ml Arformoterol Tartrate (Brovana) 15 mcg IH [id number] [facility] Last Admin: 05/06/16 09:30 Dose: 15 mcg Budesonide (Pulmicort Respules) 1 mg IH [id number] [facility] Last Admin: 05/06/16 09:30 Dose: 0.5 mg Enoxaparin Sodium (Lovenox) 40 mg SC DAILY [facility] PRN Reason: Protocol Last Admin: 05/06/16 10:28 Dose: 40 mg Vancomycin HCl (Vancomycin 1gm) 250 mls @ 167 mls/hr IVPB Q12H JT PRN Reason: Protocol Last Admin: 05/06/16 05:49 Dose: 167 mls/hr Insulin Human Regular (Humulin R Med) 0 units SC ACHS JT PRN Reason: Protocol Last Admin: 05/06/16 12:29 Dose: 3 units Morphine Sulfate (Morphine) 4 mg IVP Q4H PRN PRN Reason: Pain, severe (8-10) Mupirocin (Bactroban Ointment) 0 gm NS BID [facility] Stop: 05/10/16 10:01 Last Admin: 05/06/16 10:28 Dose: 1 applic Nystatin (Nystop Topical Powder) 0 gm TOP BID [facility] Last Admin: 05/06/16 10:28 Dose: 1 applic Oxycodone/Acetaminophen (Percocet 5/325 Mg Tab) 1 tab PO Q4H PRN PRN Reason: Pain, moderate (4-7) Stop: 05/07/16 08:32 Pantoprazole Sodium (Protonix Ec Tab) 40 mg PO DAILY [facility] Last Admin: 05/06/16 10:27 Dose: 40 mg Tiotropium [place] (Spiriva) 18 mcg IH DAILY [facility] Last Admin: 05/06/16 10:27 Dose: 18 mcg - Labs Labs: 05/06/16 07:35 05/06/16 07:35 Laboratory Tests 05/06/16 07:35 Calcium 8.5 Total Bilirubin 0.4 AST 24 ALT 28 Alkaline Phosphatase 175 H Total Protein 6.9 Albumin 2.9 L Microbiology 05/03/16 16:45 Abscess - Buttock-Left Gram Stain - Final 05/03/16 16:45 Abscess - Buttock-Left Wound Culture - Final Methicillin Resistant S Aureus 05/03/16 16:25 Blood Blood Culture - Preliminary 05/03/16 16:25 Blood NO GROWTH AFTER 48 HOURS 05/03/16 13:55 Blood Blood Culture - Preliminary 05/03/16 13:55 Blood NO GROWTH AFTER 48 HOURS - Constitutional Appears: Non-toxic, No Acute Distress - Head Exam Head Exam: NORMAL INSPECTION - Eye Exam Eye Exam: Normal appearance - ENT Exam ENT Exam: Mucous Membranes Moist - Neck Exam Additional comments: cellulitis of posterior neck draining purulent material this AM. - Respiratory Exam Respiratory Exam: NORMAL BREATHING PATTERN. absent: Accessory Muscle Use, Respiratory Distress - GI/Abdominal Exam GI & Abdominal Exam: Soft. absent: Distended, Tenderness - Rectal Exam Additional comments: R gluteal abscess w/ [address] dressing stained - changed. improved erythema. superficial fluctuance palpated @ cephalad aspect of abscess no obvious purulent drainage - Extremities Exam Extremities Exam: Normal Inspection - Neurological Exam Neurological Exam: Alert, Awake, Oriented x3 - Psychiatric Exam Psychiatric exam: Normal Affect, Normal Mood - Skin Skin Exam: Dry, Intact, Normal Color, Warm Assessment and Plan - Assessment and Plan (Free Text) Assessment: 65 y/o M w/ multiple abscess POD #1 s/p I&D in OR. - cont Abx per ID - pain management - change dressing as needed - cont medical management Pt seen and discussed w/ Dr. Bernard Leiva DO PGY1
--- NOTE | 2016-05-06 18:22 | CP.PCM.PN ---
Subjective - Date & Time of Evaluation Date of Evaluation: 05/06/16 Time of Evaluation: 12:15 - Subjective Subjective: Comfortable, less pain in the gluteal area, had I and D yesterday. Afebrile overnight. Objective - Vital Signs/Intake and Output Vital Signs (last 24 hours): Temp Pulse Resp BP Pulse Ox 98.4 F 75 20 156/91 H 97 05/06/16 07:30 05/06/16 07:30 05/06/16 07:30 05/06/16 07:30 05/06/16 07:30 Intake and Output: 05/06/16 05/06/16 06:59 18:59 Intake Total 900 Output Total 1550 Balance -650 - Medications Medications: Current Medications Albuterol/Ipratropium (Duoneb 3 Mg/0.5 Mg (3 Ml) Ud) 3 ml IH [id number] PRN PRN Reason: Shortness of Breath Last Admin: 05/03/16 22:05 Dose: 3 ml Arformoterol Tartrate (Brovana) 15 mcg IH [id number] [facility] Last Admin: 05/06/16 09:30 Dose: 15 mcg Budesonide (Pulmicort Respules) 1 mg IH [id number] [facility] Last Admin: 05/06/16 09:30 Dose: 0.5 mg Enoxaparin Sodium (Lovenox) 40 mg SC DAILY [facility] PRN Reason: Protocol Last Admin: 05/05/16 09:03 Dose: Not Given Vancomycin HCl (Vancomycin 1gm) 250 mls @ 167 mls/hr IVPB Q12H JT PRN Reason: Protocol Last Admin: 05/06/16 05:49 Dose: 167 mls/hr Insulin Human Regular (Humulin R Med) 0 units SC ACHS [facility] PRN Reason: Protocol Last Admin: 05/06/16 08:26 Dose: 3 units Morphine Sulfate (Morphine) 4 mg IVP Q4H PRN PRN Reason: Pain, severe (8-10) Mupirocin (Bactroban Ointment) 0 gm NS BID [facility] Stop: 05/10/16 10:01 Last Admin: 05/05/16 19:04 Dose: 1 applic Nystatin (Nystop Topical Powder) 0 gm TOP BID [facility] Last Admin: 05/05/16 19:06 Dose: Not Given Oxycodone/Acetaminophen (Percocet 5/325 Mg Tab) 1 tab PO Q4H PRN PRN Reason: Pain, moderate (4-7) Stop: 05/07/16 08:32 Pantoprazole Sodium (Protonix Ec Tab) 40 mg PO DAILY [facility] Last Admin: 05/05/16 09:04 Dose: Not Given Tiotropium [place] (Spiriva) 18 mcg IH DAILY [facility] Last Admin: 05/05/16 16:50 Dose: 18 mcg - Labs Labs: 05/06/16 07:35 05/06/16 07:35 PT 11.9 Seconds (9.9-11.8) H 05/03/16 14:30 INR 1.10 (0.93-1.08) H 05/03/16 14:30 APTT 30.7 Seconds (23.7-30.8) 05/03/16 14:30 - Constitutional Appears: Non-toxic, No Acute Distress - Head Exam Head Exam: NORMAL INSPECTION - Neck Exam Neck Exam: absent: Lymphadenopathy, Meningismus - Respiratory Exam Respiratory Exam: Decreased Breath Sounds - Cardiovascular Exam Cardiovascular Exam: +S1, +S2 - GI/Abdominal Exam GI & Abdominal Exam: Soft. absent: Tenderness - Back Exam Additional comments: gluteal area with dry dressings in place Assessment and Plan - Assessment and Plan (Free Text) Plan: Assessment Sepsis secondary to gluteal abcess on the right in a patient with a history of skin abscesses, growing methicilin-resistant Staph aureus, S/P surgical drainage POD #1 DM COPD HTN S/P cholecystectomy obesity with BMI 34 Plan continue Vancomycin; continue BActroban for the nares; check Vanco trough Will continue to follow clinically
[2016-05-06] MEDS: Albuterol-Ipratrop 3 mg / 0.5 (3 ml) UD IH PRN (21:29)
--- NOTE | 2016-05-06 22:03 | CP.PCM.PN ---
<Grayson Patel - Last Filed: 05/06/16 22:00> Subjective - Date & Time of Evaluation Date of Evaluation: 05/06/16 Time of Evaluation: 09:15 - Subjective Subjective: Dr. Patel PGY 1 Hospitalist note Patient seen and evaluated at bedside with surgical elastic knitter present. Patient states he is less pain than yesterday and he notes the swelling has decreased. He also reports the wound on his neck is starting to feel smaller. He denies any fever, chills, nausea, vomiting, chest pain, or SOB. He was shown the [employer] videos on diabetes and watching them. Objective - Vital Signs/Intake and Output Vital Signs (last 24 hours): Temp Pulse Resp BP Pulse Ox 98.9 F 80 20 157/89 H 93 L 05/06/16 16:00 05/06/16 16:00 05/06/16 16:00 05/06/16 16:00 05/06/16 16:00 Intake and Output: 05/06/16 05/07/16 18:59 06:59 Intake Total 840 Balance 840 - Medications Medications: Current Medications Albuterol/Ipratropium (Duoneb 3 Mg/0.5 Mg (3 Ml) Ud) 3 ml IH [id number] PRN PRN Reason: Shortness of Breath Last Admin: 05/06/16 21:29 Dose: 3 ml Arformoterol Tartrate (Brovana) 15 mcg IH [id number] [facility] Last Admin: 05/06/16 21:29 Dose: 15 mcg Budesonide (Pulmicort Respules) 1 mg IH [id number] [facility] Last Admin: 05/06/16 09:30 Dose: 0.5 mg Enoxaparin Sodium (Lovenox) 40 mg SC DAILY [facility]T PRN Reason: Protocol Last Admin: 05/06/16 10:28 Dose: 40 mg Vancomycin HCl (Vancomycin 1gm) 250 mls @ 167 mls/hr IVPB Q12H JT PRN Reason: Protocol Last Admin: 05/06/16 17:45 Dose: 167 mls/hr Insulin Human Regular (Humulin R Med) 0 units SC ACHS JT PRN Reason: Protocol Last Admin: 05/06/16 16:34 Dose: 3 units Morphine Sulfate (Morphine) 4 mg IVP Q4H PRN PRN Reason: Pain, severe (8-10) Mupirocin (Bactroban Ointment) 0 gm NS BID [facility] Stop: 05/10/16 10:01 Last Admin: 05/06/16 17:31 Dose: 1 applic Nystatin (Nystop Topical Powder) 0 gm TOP BID [facility] Last Admin: 05/06/16 17:45 Dose: Not Given Oxycodone/Acetaminophen (Percocet 5/325 Mg Tab) 1 tab PO Q4H PRN PRN Reason: Pain, moderate (4-7) Stop: 05/07/16 08:32 Pantoprazole Sodium (Protonix Ec Tab) 40 mg PO DAILY [facility] Last Admin: 05/06/16 10:27 Dose: 40 mg Tiotropium [place] (Spiriva) 18 mcg IH DAILY [facility] Last Admin: 05/06/16 10:27 Dose: 18 mcg - Labs Labs: 05/06/16 07:35 05/06/16 07:35 PT 11.9 Seconds (9.9-11.8) H 05/03/16 14:30 INR 1.10 (0.93-1.08) H 05/03/16 14:30 APTT 30.7 Seconds (23.7-30.8) 05/03/16 14:30 - Constitutional Appears: Non-toxic, No Acute Distress - Head Exam Head Exam: ATRAUMATIC, NORMOCEPHALIC - Eye Exam Eye Exam: EOMI, Normal appearance, PERRL Pupil Exam: NORMAL ACCOMODATION, PERRL - ENT Exam ENT Exam: Mucous Membranes Moist. absent: Normal Oropharynx (poor dentition) - Neck Exam Neck Exam: absent: Normal Inspection (large fluctuant cellulitic region on neck with small white carbuncle) - Respiratory Exam Respiratory Exam: Clear to Ausculation Bilateral, NORMAL BREATHING PATTERN. absent: Rales, Rhonchi, Wheezes - Cardiovascular Exam Cardiovascular Exam: REGULAR RHYTHM, +S1, +S2. absent: Gallop, Rubs, Murmur - GI/Abdominal Exam GI & Abdominal Exam: Soft, Normal Bowel Sounds. absent: Tenderness - Extremities Exam Extremities Exam: absent: Normal Inspection (multiple healing abrasions on lower extremities and hands) - Back Exam Back Exam: absent: NORMAL INSPECTION (wound on buttock clean and dressed ) - Neurological Exam Neurological Exam: Alert, Awake - Psychiatric Exam Psychiatric exam: Normal Affect, Normal Mood - Skin Skin Exam: Dry, Intact, Warm Assessment and Plan - Assessment and Plan (Free Text) Assessment: 65 yo male ith PMH of asthma, copd, emphysema, dm presented to ED with sepsis 2/ 2 multiple skin abscess with hyperglycemia. CT neck, chest, abd, pelvis showed skin and subcutaneous thickening and stranding posterior neck suggestive of cellulitis, no discrete abscess. skin thickening and phlegmon of posterior aspect of R buttock with early abscess formation. s/p I&D day 1 Plan: 1. sepsis 2/2 mutiple skin abscess * ID consulted help appreciated * sugery consulted, help appreciated * leukocytosis of 14.5 today * CT neck, chest, abdm pelvis- skin and subcutaneous thickening and stranding posterior neck suggestive of cellulitis, no discrete abscess. skin thickening and phlegmon of posterior aspect of R buttock with early abscess formation [ see full report] * continue unisyn and vanco * warm compresses * procalcitonin wnl * HIV non reactive * blood cultures negative * wound cultures show MRSA growth, contact precuations * s/p I&D day 1 * pain controlled w/ morphine and percocet 2. DM/ hyperglycemia * ISSS-med * accuchecks ACHS * hgbA1c 11.3 * counselled on importance of medication and diet compliance * continue NPH 70/30 5U SC Q12H * diabetic counseling ordered * shown [facility] diabetic education vidoes 3. tinea cruris * nystain powder 4. asthma, COPD, emphysema * cont home meds advair and spiriva * cont duoneb q6 prn 5. ppx * protonix * lovenox SX Assessment and plan discussed with attending physician <Beverly Chand B - Last Filed: 05/07/16 16:28> Objective - Vital Signs/Intake and Output Vital Signs (last 24 hours): Temp Pulse Resp BP Pulse Ox 98.6 F 76 18 154/89 H 97 05/07/16 07:30 05/07/16 07:30 05/07/16 07:30 05/07/16 07:30 05/07/16 07:30 Intake and Output: 05/07/16 05/07/16 06:59 18:59 Intake Total 1940 960 Output Total 1300 Balance 640 960 - Medications Medications: Current Medications Albuterol/Ipratropium (Duoneb 3 Mg/0.5 Mg (3 Ml) Ud) 3 ml IH [id number] PRN PRN Reason: Shortness of Breath Last Admin: 05/06/16 21:29 Dose: 3 ml Arformoterol Tartrate (Brovana) 15 mcg IH [id number] [facility] Last Admin: 05/07/16 07:42 Dose: 15 mcg Budesonide (Pulmicort Respules) 1 mg IH [id number] [facility] Last Admin: 05/07/16 07:43 Dose: 1 mg Enoxaparin Sodium (Lovenox) 40 mg SC DAILY [facility] PRN Reason: Protocol Last Admin: 05/07/16 09:46 Dose: 40 mg Vancomycin HCl (Vancomycin 1gm) 250 mls @ 167 mls/hr IVPB Q12H JT PRN Reason: Protocol Last Admin: 05/07/16 06:14 Dose: 167 mls/hr Insulin Human Regular (Humulin R Med) 0 units SC ACHS JT PRN Reason: Protocol Last Admin: 05/07/16 12:07 Dose: 3 units Morphine Sulfate (Morphine) 4 mg IVP Q4H PRN PRN Reason: Pain, severe (8-10) Mupirocin (Bactroban Ointment) 0 gm NS BID [facility] Stop: 05/10/16 10:01 Last Admin: 05/07/16 09:46 Dose: 1 applic Nystatin (Nystop Topical Powder) 0 gm TOP BID [facility] Last Admin: 05/07/16 10:02 Dose: 1 applic Pantoprazole Sodium (Protonix Ec Tab) 40 mg PO DAILY [facility] Last Admin: 05/07/16 09:49 Dose: 40 mg Tiotropium [place] (Spiriva) 18 mcg IH DAILY [facility] Last Admin: 05/07/16 09:49 Dose: 18 mcg - Labs Labs: 05/07/16 08:03 05/07/16 08:03 PT 11.9 Seconds (9.9-11.8) H 05/03/16 14:30 INR 1.10 (0.93-1.08) H 05/03/16 14:30 APTT 30.7 Seconds (23.7-30.8) 05/03/16 14:30 Attending/Attestation - Attestation I have personally seen and examined this patient.: Yes I have fully participated in the care of the patient.: Yes I have reviewed all pertinent clinical information, including history, physical exam and plan: Yes Notes (Text): I have seen and examined patient at bedside with the resident. Agree with the above note with the following additions/ exceptions: This is 65 year old male with obesity, uncontrolled DM-2, non compliance with medications, asthma, copd, cholecystectomy who got admitted for multiple skin lesions including carbuncle on the nape of neck and right buttocks and cellulitis on right thumb. He failed outpatient cipro and warm compresses. CT neck, chest, abdomen, pelvis showed cellulitis and early abscess formation. ID and surgery consult appreciated. He underwent I&D today of right buttock. Swelling is less as compared to yesterday. HIV is negative. Wound culture is growing staph aureus. Continue vanco and unasyn. Continue nystatin powder for tinea cruris. HBA1C is 11.3. Diabetic education provided by me. Ordered official diabetic teaching. He has watched learning videos. He needs to learn how to self inject insulin. Continue medium ISS coverage. and start humilin 70/30 . Upon discharge patient will follow up with Dr Vallecillo. Dr Beverly Chand
[2016-05-07] MEDS: Vancomycin 1gm in NS 250ml 250 ML IVPB SCH ×3 (06:14→17:27)
[2016-05-07] MEDS: Arformoterol 15 mcg/2 ml Inh Sol IH SCH ×2 (07:42→20:13)
[2016-05-07] MEDS: Budesonide 0.5 mg/2 ml Inhal Susp UD IH SCH ×2 (07:43→20:10)
[2016-05-07 08:06] LABS: ADD MANUAL DIFF? NO
[2016-05-07 08:19] LABS: ALB/GLOB RATIO 0.8 (1.1-1.8); ALKALINE PHOSPHATASE 169 U/L (38-133); ALT/SGPT 27 U/L (7-56); AST/SGOT 29 U/L (15-59); BASO # 0.02 K/mm3 (0.0-2.0); BASO % 0.2 % (0.0-3.0); BILIRUBIN,TOTAL 0.3 mg/dL (0.2-1.3); BLOOD UREA NITROGEN 13 mg/dL (7-21); CALCIUM 8.6 mg/dL (8.4-10.5); CARBON DIOXIDE 29 mmol/L (21-33); CHLORIDE 98 mmol/L (95-110); EOS # 0.8 (0.0-0.7); EOS % 6.4 % (1.5-5.0); GFR AFRICAN-AMERICAN > 60; GLUCOSE,RANDOM 260 mg/dL (70-110); GRAN # 9.61 (1.4-6.5); GRAN % 72.9 % (50.0-68.0); HEMATOCRIT 38.2 % (42.0-52.0); LYMPH # 1.9 (1.2-3.4); MEAN CELL VOLUME 89.3 fL (80.0-105.0); MEAN CORPUSCULAR HEMOGLOBIN 29.7 pg (25.0-35.0); MEAN CORPUSCULAR HGB CONC 33.2 g/dl (31.0-37.0); MEAN PLATELET VOLUME 9.9 fl (7.0-11.0); MONO # 0.9 (0.1-0.6); MONO % 6.5 % (1.0-6.0); PLATELET COUNT 441 10^3/uL (120.0-450.0); POTASSIUM 4.6 mmol/L (3.6-5.0); RED CELL DISTRIBUTION WIDTH 12.6 % (11.5-14.5); SODIUM 134 mmol/L (132-148); TOTAL PROTEIN 6.7 g/dL (5.8-8.3); WHITE BLOOD COUNT 13.2 10^3/ul (4.5-11.0)
[2016-05-07] MEDS: Enoxaparin 40 mg Syringe SC SCH (09:46)
[2016-05-07] MEDS: Insulin Reg-MEDIUM-Coverage SC SCH ×5 (09:46→23:38)
[2016-05-07] MEDS: Pantoprazole 40 mg EC Tab PO SCH (09:49)
[2016-05-07] MEDS: Tiotropium 18 mcg Cap For Inhalation IH SCH (09:49)
[2016-05-07] MEDS: Nystatin 100,000 Units/gm Topical Pow(15 gm) TOP SCH ×2 (10:02→17:21)
--- NOTE | 2016-05-07 13:48 | PN ---
DATE: 05/07/2016 The patient seen earlier today in room 573, bed 3. The patient has no fevers, no chills. He states he is feeling better. PHYSICAL EXAMINATION: VITAL SIGNS: Temperature is 98, blood pressure is 150/80, respiratory rate of 18, heart rate of 76. HEENT: Unremarkable. NECK: Supple. LUNGS: Have decreased breath sounds. HEART: Normal S1, S2. ABDOMEN: Soft, nontender. LABORATORY EXAMINATION: Reveals a white count of 13,000, hemoglobin of 12, platelets of 441. The ch emistries are noted, BUN of 13, creatinine of 0.7 and a procalcitonin reveals 0.15. Vancomycin troug h is 5.5. HIV is negative. Microbiology reveals the buttocks culture has MRSA, sensitivity reveals to be sensitive to tetracycline and Bactrim and clindamycin, resistant to erythromycin. Review of the orders reveals the patient to be on vancomycin. ASSESSMENT AND PLAN: A 65-year-old male with sepsis secondary to methicillin-resistant Staphylococcu s aureus gluteal abscess and postsurgical day #2. Currently on vancomycin in a patient with diabetes , hypertension, chronic obstructive lung disease, obesity, body mass index of 34 with a history of ch olecystectomy and will follow with you. Semaj Aviles MD cc: [id number] TT: 05/07/2016 13:47:57 Confirmation # [id number] Dictation # [id number] en
--- NOTE | 2016-05-07 14:16 | CP.PCM.PN ---
<Terrence Finley - Last Filed: 05/07/16 14:11> Subjective - Date & Time of Evaluation Date of Evaluation: 05/07/16 Time of Evaluation: 10:55 - Subjective Subjective: PGY-1 Medicine Progress Note for Dr. Chand Patient seen and examined at bedside. No acute event overnight. He is POD#2 for I&D of buttock abscess. Patient states pain and swelling is improving. He also reports the wound on his neck decreasing in size. No specific complaints today. He denies any fever, chills, nausea, vomiting, chest pain, or SOB. He was shown the [employer] videos on diabetes and watching them. Nurse will show him how to properly inject insulin subcutaneously. Objective - Vital Signs/Intake and Output Vital Signs (last 24 hours): Temp Pulse Resp BP Pulse Ox 98.6 F 76 18 154/89 H 97 05/07/16 07:30 05/07/16 07:30 05/07/16 07:30 05/07/16 07:30 05/07/16 07:30 Intake and Output: 05/07/16 05/07/16 06:59 18:59 Intake Total 1940 Output Total 1300 Balance 640 - Medications Medications: Current Medications Albuterol/Ipratropium (Duoneb 3 Mg/0.5 Mg (3 Ml) Ud) 3 ml IH [id number] PRN PRN Reason: Shortness of Breath Last Admin: 05/06/16 21:29 Dose: 3 ml Arformoterol Tartrate (Brovana) 15 mcg IH [id number] [facility] Last Admin: 05/07/16 07:42 Dose: 15 mcg Budesonide (Pulmicort Respules) 1 mg IH [id number] [facility] Last Admin: 05/07/16 07:43 Dose: 1 mg Enoxaparin Sodium (Lovenox) 40 mg SC DAILY JT PRN Reason: Protocol Last Admin: 05/07/16 09:46 Dose: 40 mg Vancomycin HCl (Vancomycin 1gm) 250 mls @ 167 mls/hr IVPB Q12H JT PRN Reason: Protocol Last Admin: 05/07/16 06:14 Dose: 167 mls/hr Insulin Human Regular (Humulin R Med) 0 units SC ACHS JT PRN Reason: Protocol Last Admin: 05/07/16 12:07 Dose: 3 units Morphine Sulfate (Morphine) 4 mg IVP Q4H PRN PRN Reason: Pain, severe (8-10) Mupirocin (Bactroban Ointment) 0 gm NS BID [facility] Stop: 05/10/16 10:01 Last Admin: 05/07/16 09:46 Dose: 1 applic Nystatin (Nystop Topical Powder) 0 gm TOP BID [facility] Last Admin: 05/07/16 10:02 Dose: 1 applic Pantoprazole Sodium (Protonix Ec Tab) 40 mg PO DAILY [facility] Last Admin: 05/07/16 09:49 Dose: 40 mg Tiotropium [place] (Spiriva) 18 mcg IH DAILY [facility] Last Admin: 05/07/16 09:49 Dose: 18 mcg - Labs Labs: 05/07/16 08:03 05/07/16 08:03 PT 11.9 Seconds (9.9-11.8) H 05/03/16 14:30 INR 1.10 (0.93-1.08) H 05/03/16 14:30 APTT 30.7 Seconds (23.7-30.8) 05/03/16 14:30 - Constitutional Appears: No Acute Distress - Head Exam Head Exam: ATRAUMATIC, NORMOCEPHALIC - Eye Exam Eye Exam: EOMI, Normal appearance Pupil Exam: PERRL - ENT Exam ENT Exam: Mucous Membranes Moist Additional comments: poor dentition - Neck Exam Additional comments: large fluctuant cellulitic region on neck with small white carbuncle - Respiratory Exam Respiratory Exam: Clear to Ausculation Bilateral, NORMAL BREATHING PATTERN - Cardiovascular Exam Cardiovascular Exam: REGULAR RHYTHM, +S1, +S2 - GI/Abdominal Exam GI & Abdominal Exam: Soft, Normal Bowel Sounds. absent: Tenderness - Extremities Exam Extremities Exam: Normal Capillary Refill Additional comments: multiple healing abrasions on lower extremities and hands - Back Exam Back Exam: absent: CVA tenderness (L), CVA tenderness (R) Additional comments: wound dressing freshly changed - Neurological Exam Neurological Exam: Alert, Awake, CN II-XII Intact, Oriented x3 - Psychiatric Exam Psychiatric exam: Normal Affect, Normal Mood - Skin Skin Exam: Dry, Warm Assessment and Plan - Assessment and Plan (Free Text) Plan: 65 yo male ith PMH of asthma, copd, emphysema, dm presented to ED with sepsis 2/ 2 multiple skin abscess with hyperglycemia. CT neck, chest, abd, pelvis showed skin and subcutaneous thickening and stranding posterior neck suggestive of cellulitis, no discrete abscess. skin thickening and phlegmon of posterior aspect of R buttock with early abscess formation. 1. sepsis 2/2 mutiple skin abscess ID consulted help appreciated sugery consulted, help appreciated CT neck, chest, abdm pelvis- skin and subcutaneous thickening and stranding posterior neck suggestive of cellulitis, no discrete abscess. skin thickening and phlegmon of posterior aspect of R buttock with early abscess formation [ see full report] continue unisyn and vanco warm compresses procalcitonin wnl HIV non reactive blood cultures negative wound cultures show MRSA growth, contact precuations s/p I&D day 2 pain controlled w/ morphine and percocet 2. DM/ hyperglycemia ISSS-med accuchecks ACHS hgbA1c 11.3 counselled on importance of medication and diet compliance continue NPH 70/30 5U SC Q12H diabetic counseling ordered shown [facility] diabetic education vidoes 3. tinea cruris nystain powder 4. asthma, COPD, emphysema cont home meds advair and spiriva cont duoneb q6 prn 5. ppx protonix lovenox <Beverly Chand B - Last Filed: 05/07/16 16:31> Objective - Vital Signs/Intake and Output Vital Signs (last 24 hours): Temp Pulse Resp BP Pulse Ox 98.6 F 76 18 154/89 H 97 05/07/16 07:30 05/07/16 07:30 05/07/16 07:30 05/07/16 07:30 05/07/16 07:30 Intake and Output: 05/07/16 05/07/16 06:59 18:59 Intake Total 1940 960 Output Total 1300 Balance 640 960 - Medications Medications: Current Medications Albuterol/Ipratropium (Duoneb 3 Mg/0.5 Mg (3 Ml) Ud) 3 ml IH [id number] PRN PRN Reason: Shortness of Breath Last Admin: 05/06/16 21:29 Dose: 3 ml Arformoterol Tartrate (Brovana) 15 mcg IH [id number] [facility] Last Admin: 05/07/16 07:42 Dose: 15 mcg Budesonide (Pulmicort Respules) 1 mg IH [id number] [facility] Last Admin: 05/07/16 07:43 Dose: 1 mg Enoxaparin Sodium (Lovenox) 40 mg SC DAILY JT PRN Reason: Protocol Last Admin: 05/07/16 09:46 Dose: 40 mg Vancomycin HCl (Vancomycin 1gm) 250 mls @ 167 mls/hr IVPB Q12H JT PRN Reason: Protocol Last Admin: 05/07/16 06:14 Dose: 167 mls/hr Insulin Human Regular (Humulin R Med) 0 units SC ACHS JT PRN Reason: Protocol Last Admin: 05/07/16 12:07 Dose: 3 units Morphine Sulfate (Morphine) 4 mg IVP Q4H PRN PRN Reason: Pain, severe (8-10) Mupirocin (Bactroban Ointment) 0 gm NS BID [facility] Stop: 05/10/16 10:01 Last Admin: 05/07/16 09:46 Dose: 1 applic Nystatin (Nystop Topical Powder) 0 gm TOP BID [facility] Last Admin: 05/07/16 10:02 Dose: 1 applic Pantoprazole Sodium (Protonix Ec Tab) 40 mg PO DAILY [facility] Last Admin: 05/07/16 09:49 Dose: 40 mg Tiotropium [place] (Spiriva) 18 mcg IH DAILY [facility] Last Admin: 05/07/16 09:49 Dose: 18 mcg - Labs Labs: 05/07/16 08:03 05/07/16 08:03 PT 11.9 Seconds (9.9-11.8) H 05/03/16 14:30 INR 1.10 (0.93-1.08) H 05/03/16 14:30 APTT 30.7 Seconds (23.7-30.8) 05/03/16 14:30 Attending/Attestation - Attestation I have personally seen and examined this patient.: Yes I have fully participated in the care of the patient.: Yes I have reviewed all pertinent clinical information, including history, physical exam and plan: Yes Notes (Text): I have seen and examined patient at bedside with the resident. Agree with the above note with the following additions/ exceptions: This is 65 year old male with obesity, uncontrolled DM-2, non compliance with medications, asthma, copd, cholecystectomy who got admitted for multiple skin lesions including carbuncle on the nape of neck and right buttocks and cellulitis on right thumb. He failed outpatient cipro and warm compresses. CT neck, chest, abdomen, pelvis showed cellulitis and early abscess formation. ID and surgery consult appreciated. He underwent I&D of right buttock. Swelling is less as compared to yesterday. His neck abscess is also draining and swelling has improved. Cellulitis of right thum has improved as well. HIV is negative. Wound culture is growing staph aureus. Continue vanco and bactroban. Continue nystatin powder for tinea cruris. HBA1C is 11.3. Diabetic education provided by [facility]. Ordered official diabetic teaching. He has watched learning videos. He needs to learn how to self inject insulin. Continue medium ISS coverage. and continue humilin 70/30 . Upon discharge patient will follow up with Dr Vallecillo. Dr Beverly Chand 05/07/16 16:31
[2016-05-07] MEDS: Insulin Human NPH/Reg 70/30 Vial(3 ml) SC SCH (17:22)
--- NOTE | 2016-05-07 17:32 | CP.PCM.PN ---
Subjective - Date & Time of Evaluation Date of Evaluation: 05/07/16 Time of Evaluation: 17:29 - Subjective Subjective: Surgery for Dr. Wagner Pt s&eKy KIMBALL. Denies pain,F/C/N/V/D/CP/SOB. Tolerating PO. +void +bm. Objective - Vital Signs/Intake and Output Vital Signs (last 24 hours): Temp Pulse Resp BP Pulse Ox 98.3 F 75 18 139/63 95 05/07/16 16:00 05/07/16 16:00 05/07/16 16:00 05/07/16 16:00 05/07/16 16:00 Intake and Output: 05/07/16 05/07/16 06:59 18:59 Intake Total 1940 960 Output Total 1300 Balance 640 960 - Medications Medications: Current Medications Albuterol/Ipratropium (Duoneb 3 Mg/0.5 Mg (3 Ml) Ud) 3 ml IH [id number] PRN PRN Reason: Shortness of Breath Last Admin: 05/06/16 21:29 Dose: 3 ml Arformoterol Tartrate (Brovana) 15 mcg IH [id number] [facility] Last Admin: 05/07/16 07:42 Dose: 15 mcg Budesonide (Pulmicort Respules) 1 mg IH [id number] [facility] Last Admin: 05/07/16 07:43 Dose: 1 mg Enoxaparin Sodium (Lovenox) 40 mg SC DAILY [facility] PRN Reason: Protocol Last Admin: 05/07/16 09:46 Dose: 40 mg Vancomycin HCl (Vancomycin 1gm) 250 mls @ 167 mls/hr IVPB Q12H JT PRN Reason: Protocol Last Admin: 05/07/16 06:14 Dose: 167 mls/hr Insulin Human Regular (Humulin R Med) 0 units SC ACHS JT PRN Reason: Protocol Last Admin: 05/07/16 12:07 Dose: 3 units Morphine Sulfate (Morphine) 4 mg IVP Q4H PRN PRN Reason: Pain, severe (8-10) Mupirocin (Bactroban Ointment) 0 gm NS BID [facility] Stop: 05/10/16 10:01 Last Admin: 05/07/16 09:46 Dose: 1 applic Nystatin (Nystop Topical Powder) 0 gm TOP BID [facility] Last Admin: 05/07/16 10:02 Dose: 1 applic Pantoprazole Sodium (Protonix Ec Tab) 40 mg PO DAILY [facility] Last Admin: 05/07/16 09:49 Dose: 40 mg Tiotropium [place] (Spiriva) 18 mcg IH DAILY [facility] Last Admin: 05/07/16 09:49 Dose: 18 mcg - Labs Labs: 05/07/16 08:03 05/07/16 08:03 PT 11.9 Seconds (9.9-11.8) H 05/03/16 14:30 INR 1.10 (0.93-1.08) H 05/03/16 14:30 APTT 30.7 Seconds (23.7-30.8) 05/03/16 14:30 - Constitutional Appears: No Acute Distress - Head Exam Head Exam: ATRAUMATIC, NORMAL INSPECTION, NORMOCEPHALIC - Eye Exam Eye Exam: EOMI, Normal appearance, PERRL Pupil Exam: NORMAL ACCOMODATION, PERRL - ENT Exam ENT Exam: Mucous Membranes Moist, Normal Exam - Neck Exam Neck Exam: Full ROM. absent: Lymphadenopathy Additional comments: Dressing in place on back of the neck - Respiratory Exam Respiratory Exam: Clear to Ausculation Bilateral, NORMAL BREATHING PATTERN - Cardiovascular Exam Cardiovascular Exam: REGULAR RHYTHM, +S1, +S2. absent: Murmur - GI/Abdominal Exam GI & Abdominal Exam: Soft, Normal Bowel Sounds. absent: Distended, Firm, Guarding, Tenderness - Rectal Exam Rectal Exam: absent: Black Stool, Bloody Stool, Hemorrhoids, Fecal Impaction Additional comments: [address] Dressing changed. Dressing saturated with SS fluids. Foul odor. - Extremities Exam Extremities Exam: Normal Inspection - Back Exam Back Exam: NORMAL INSPECTION - Neurological Exam Neurological Exam: Alert, Awake, CN II-XII Intact, Oriented x3 - Psychiatric Exam Psychiatric exam: Normal Affect, Normal Mood - Skin Skin Exam: Dry, Erythema, Warm Assessment and Plan - Assessment and Plan (Free Text) Assessment: 65 y/o M w/ multiple abscess POD #2 s/p I&D in OR. - cont Abx per ID - pain management - change dressing as needed - cont medical management Pt discussed w/ Dr. Wagner
[2016-05-08] MEDS: Vancomycin 1gm in NS 250ml 250 ML IVPB SCH ×2 (05:54→18:06)
[2016-05-08] MEDS: Insulin Human NPH/Reg 70/30 Vial(3 ml) SC SCH ×2 (05:55→18:05)
[2016-05-08 07:20] LABS: ADD MANUAL DIFF? NO
[2016-05-08 07:22] LABS: BASO # 0.06 K/mm3 (0.0-2.0); BASO % 0.4 % (0.0-3.0); EOS # 0.8 (0.0-0.7); GRAN # 10.01 (1.4-6.5); GRAN % 74.1 % (50.0-68.0); HEMATOCRIT 38.7 % (42.0-52.0); LYMPH # 1.9 (1.2-3.4); LYMPH % 14.1 % (22.0-35.0); MEAN CELL VOLUME 89.6 fL (80.0-105.0); MEAN CORPUSCULAR HEMOGLOBIN 29.4 pg (25.0-35.0); MEAN CORPUSCULAR HGB CONC 32.8 g/dl (31.0-37.0); MEAN PLATELET VOLUME 9.6 fl (7.0-11.0); MONO # 0.7 (0.1-0.6); MONO % 5.4 % (1.0-6.0); PLATELET COUNT 440 10^3/uL (120.0-450.0); RED CELL DISTRIBUTION WIDTH 12.7 % (11.5-14.5); WHITE BLOOD COUNT 13.5 10^3/ul (4.5-11.0)
[2016-05-08 07:38] LABS: ALB/GLOB RATIO 0.8 (1.1-1.8); ALKALINE PHOSPHATASE 158 U/L (38-133); ALT/SGPT 23 U/L (7-56); AST/SGOT 31 U/L (15-59); BILIRUBIN,TOTAL 0.4 mg/dL (0.2-1.3); BLOOD UREA NITROGEN 12 mg/dL (7-21); CALCIUM 8.5 mg/dL (8.4-10.5); CARBON DIOXIDE 31 mmol/L (21-33); CHLORIDE 99 mmol/L (98-107); GFR AFRICAN-AMERICAN > 60; GLUCOSE,RANDOM 194 mg/dL (70-110); POTASSIUM 4.6 mmol/L (3.6-5.0); SODIUM 138 mmol/L (132-148); TOTAL PROTEIN 6.9 g/dL (5.8-8.3)
--- NOTE | 2016-05-08 07:49 | CP.PCM.PN ---
Subjective - Date & Time of Evaluation Date of Evaluation: 05/08/16 Time of Evaluation: 07:45 - Subjective Subjective: SURGICAL PROGRESS NOTE FOR DR. SIMMONS Pt seen and examined. No acute events overnight. Shana drains in place. Pt having BM which are not always soft. Patient is able to ambulate. Tolerating diet. Denies having any N/V. Objective - Vital Signs/Intake and Output Vital Signs (last 24 hours): Temp Pulse Resp BP Pulse Ox 98.3 F 75 18 139/63 95 05/07/16 16:00 05/07/16 16:00 05/07/16 16:00 05/07/16 16:00 05/07/16 16:00 Intake and Output: 05/08/16 05/08/16 06:59 18:59 Intake Total 730 Output Total 500 Balance 230 - Medications Medications: Current Medications Albuterol/Ipratropium (Duoneb 3 Mg/0.5 Mg (3 Ml) Ud) 3 ml IH [id number] PRN PRN Reason: Shortness of Breath Last Admin: 05/06/16 21:29 Dose: 3 ml Arformoterol Tartrate (Brovana) 15 mcg IH [id number] [facility] Last Admin: 05/07/16 20:13 Dose: 15 mcg Budesonide (Pulmicort Respules) 1 mg IH [id number] [facility] Last Admin: 05/07/16 20:10 Dose: 1 mg Enoxaparin Sodium (Lovenox) 40 mg SC DAILY [facility] PRN Reason: Protocol Last Admin: 05/07/16 09:46 Dose: 40 mg Vancomycin HCl (Vancomycin 1gm) 250 mls @ 167 mls/hr IVPB Q12H JT PRN Reason: Protocol Last Admin: 05/08/16 05:54 Dose: 167 mls/hr Insulin Human Regular (Humulin R Med) 0 units SC ACHS JT PRN Reason: Protocol Last Admin: 05/07/16 23:38 Dose: Not Given Morphine Sulfate (Morphine) 4 mg IVP Q4H PRN PRN Reason: Pain, severe (8-10) Mupirocin (Bactroban Ointment) 0 gm NS BID [facility] Stop: 05/10/16 10:01 Last Admin: 05/07/16 19:30 Dose: 1 applic Nystatin (Nystop Topical Powder) 0 gm TOP BID [facility] Last Admin: 05/07/16 17:21 Dose: 1 applic Pantoprazole Sodium (Protonix Ec Tab) 40 mg PO DAILY [facility] Last Admin: 05/07/16 09:49 Dose: 40 mg Tiotropium [place] (Spiriva) 18 mcg IH DAILY [facility] Last Admin: 05/07/16 09:49 Dose: 18 mcg - Labs Labs: 05/08/16 07:00 05/07/16 08:03 PT 11.9 Seconds (9.9-11.8) H 05/03/16 14:30 INR 1.10 (0.93-1.08) H 05/03/16 14:30 APTT 30.7 Seconds (23.7-30.8) 05/03/16 14:30 - Constitutional Appears: Non-toxic, No Acute Distress - Head Exam Head Exam: ATRAUMATIC, NORMAL INSPECTION - ENT Exam ENT Exam: Mucous Membranes Moist - Respiratory Exam Respiratory Exam: absent: Accessory Muscle Use, Respiratory Distress - GI/Abdominal Exam GI & Abdominal Exam: Soft. absent: Distended, Firm, Guarding, Rigid, Tenderness - Neurological Exam Neurological Exam: Alert, Awake, Oriented x3 - Psychiatric Exam Psychiatric exam: Normal Affect, Normal Mood - Skin Skin Exam: Dry, Intact, Normal Color, Warm Assessment and Plan - Assessment and Plan (Free Text) Assessment: 65 y/o M w/ multiple abscess POD #3 s/p I&D in OR. - IV antibiotics per ID recs - pain management - change dressing as needed - cont medical management Discussed w/ Dr. Simmons for further recs Arti Amin PGY1
[2016-05-08] MEDS: Insulin Reg-MEDIUM-Coverage SC SCH ×4 (08:25→21:54)
[2016-05-08] MEDS: Arformoterol 15 mcg/2 ml Inh Sol IH SCH ×2 (08:45→21:10)
[2016-05-08] MEDS: Budesonide 0.5 mg/2 ml Inhal Susp UD IH SCH ×2 (08:45→21:10)
[2016-05-08] MEDS: Enoxaparin 40 mg Syringe SC SCH (10:09)
[2016-05-08] MEDS: Tiotropium 18 mcg Cap For Inhalation IH SCH (10:10)
[2016-05-08] MEDS: Pantoprazole 40 mg EC Tab PO SCH (10:10)
[2016-05-08] MEDS: Nystatin 100,000 Units/gm Topical Pow(15 gm) TOP SCH ×2 (10:10→18:07)
--- NOTE | 2016-05-08 14:44 | CP.PCM.PN ---
<Grayson Patel - Last Filed: 05/08/16 14:27> Subjective - Date & Time of Evaluation Date of Evaluation: 05/08/16 Time of Evaluation: 07:30 - Subjective Subjective: Dr. Patel PGY 1 Hospitalist Note Patient seen and evaluated at bedside. He reports the cellulitic area on the back of his neck has opened and is draining puss. He denies any pain or swelling in the area and says it feels as though the area has decreased in size. When discussing the abscess on his buttock, he says the pain is well controlled and surgery has been dressing and cleaning the wound. He notes some discharge when they changed his dressing. He currently denies any nausea, fever, chills, abdominal pian, chest pain, SOB, or palpitations. When questioning him about his diabetes, he states he does not like taking metformin as it gives him diarrhea. He continues to have soda and candy in his room after being shown the [facility] diabetes films and seeing the parent educator. Objective - Vital Signs/Intake and Output Vital Signs (last 24 hours): Temp Pulse Resp BP Pulse Ox 98.3 F 75 18 139/63 95 05/07/16 16:00 05/07/16 16:00 05/07/16 16:00 05/07/16 16:00 05/07/16 16:00 Intake and Output: 05/08/16 05/08/16 06:59 18:59 Intake Total 730 Output Total 500 Balance 230 - Medications Medications: Current Medications Acetaminophen (Tylenol 325mg Tab) 650 mg PO Q6H PRN PRN Reason: Pain, moderate (4-7) Albuterol/Ipratropium (Duoneb 3 Mg/0.5 Mg (3 Ml) Ud) 3 ml IH [id number] PRN PRN Reason: Shortness of Breath Last Admin: 05/06/16 21:29 Dose: 3 ml Arformoterol Tartrate (Brovana) 15 mcg IH [id number] [facility] Last Admin: 05/08/16 08:45 Dose: 15 mcg Budesonide (Pulmicort Respules) 1 mg IH [id number] [facility] Last Admin: 05/08/16 08:45 Dose: 0.5 mg Enoxaparin Sodium (Lovenox) 40 mg SC DAILY [facility] PRN Reason: Protocol Last Admin: 05/08/16 10:09 Dose: 40 mg Vancomycin HCl (Vancomycin 1gm) 250 mls @ 167 mls/hr IVPB Q12H [facility] PRN Reason: Protocol Last Admin: 05/08/16 05:54 Dose: 167 mls/hr Insulin Human Regular (Humulin R Med) 0 units SC ACHS [facility] PRN Reason: Protocol Last Admin: 05/08/16 12:30 Dose: 1 units Mupirocin (Bactroban Ointment) 0 gm NS BID [facility] Stop: 05/10/16 10:01 Last Admin: 05/08/16 10:09 Dose: 1 applic Nystatin (Nystop Topical Powder) 0 gm TOP BID [facility] Last Admin: 05/08/16 10:10 Dose: 1 applic Pantoprazole Sodium (Protonix Ec Tab) 40 mg PO DAILY [facility] Last Admin: 05/08/16 10:10 Dose: Not Given Tiotropium [place] (Spiriva) 18 mcg IH DAILY [facility] Last Admin: 05/08/16 10:10 Dose: 18 mcg - Labs Labs: 05/08/16 07:00 05/08/16 07:00 PT 11.9 Seconds (9.9-11.8) H 05/03/16 14:30 INR 1.10 (0.93-1.08) H 05/03/16 14:30 APTT 30.7 Seconds (23.7-30.8) 05/03/16 14:30 - Constitutional Appears: Non-toxic, No Acute Distress - Head Exam Head Exam: ATRAUMATIC, NORMOCEPHALIC - Eye Exam Eye Exam: EOMI, Normal appearance, PERRL Pupil Exam: NORMAL ACCOMODATION, PERRL - ENT Exam ENT Exam: Mucous Membranes Moist. absent: Normal Oropharynx (poor dentition) - Neck Exam Neck Exam: absent: Normal Inspection (fluctuant, erythematous region on back of neck with purulent drainage.) - Respiratory Exam Respiratory Exam: Clear to Ausculation Bilateral, NORMAL BREATHING PATTERN. absent: Rales, Rhonchi, Wheezes - Cardiovascular Exam Cardiovascular Exam: REGULAR RHYTHM, +S1, +S2. absent: Gallop, Rubs, Murmur - GI/Abdominal Exam GI & Abdominal Exam: Soft, Normal Bowel Sounds. absent: Tenderness - Extremities Exam Extremities Exam: absent: Normal Inspection (multiple slow heaing lesions on both extremities), Pedal Edema, Tenderness - Back Exam Back Exam: absent: NORMAL INSPECTION (abscess on buttock clean and dressed, tubes in place) - Neurological Exam Neurological Exam: Alert, Awake, CN II-XII Intact, Oriented x3 - Psychiatric Exam Psychiatric exam: Normal Affect, Normal Mood - Skin Skin Exam: Dry, Normal Color, Warm Assessment and Plan - Assessment and Plan (Free Text) Assessment: 65 yo male ith PMH of asthma, copd, emphysema, dm presented to ED with sepsis 2/ 2 multiple skin abscess with hyperglycemia. CT neck, chest, abd, pelvis showed skin and subcutaneous thickening and stranding posterior neck suggestive of cellulitis, no discrete abscess. skin thickening and phlegmon of posterior aspect of R buttock with early abscess formation. s/p I&D day 3 Plan: 1. sepsis 2/2 mutiple skin abscess * ID consulted help appreciated * lucrecia consulted, help appreciated * leukocytosis of 13.5 today * CT neck, chest, abdm pelvis- skin and subcutaneous thickening and stranding posterior neck suggestive of cellulitis, no discrete abscess. skin thickening and phlegmon of posterior aspect of R buttock with early abscess formation [ see full report] * continue vancomycin and consider switching to oral Bactrim on discharge * warm compresses * procalcitonin wnl * HIV non reactive * blood cultures negative * wound cultures show MRSA growth, contact precautions * s/p I&D day 3 * pain controlled tylenol 2. DM/ hyperglycemia * ISSS-med * accuchecks ACHS * hgbA1c 11.3 * counselled on importance of medication and diet compliance * continue NPH 70/30 5U SC Q12H * diabetic counseling ordered * shown down [facility] diabetic education videos * planning for insulin and jiardiance for discharge 3. tinea cruris * improved * continue nystain powder 4. asthma, COPD, emphysema * cont home meds advair and spiriva * cont duoneb q6 prn 5. ppx * protonix * lovenox SX Assessment and plan discussed with attending physician <Ailyn Valdes - Last Filed: 05/08/16 17:58> Objective - Vital Signs/Intake and Output Vital Signs (last 24 hours): Temp Pulse Resp BP Pulse Ox 98.3 F 55 L 18 155/86 H 96 05/08/16 16:00 05/08/16 16:00 05/08/16 16:00 05/08/16 16:00 05/08/16 16:00 Intake and Output: 05/08/16 05/08/16 06:59 18:59 Intake Total 730 600 Output Total 500 150 Balance 230 450 - Medications Medications: Current Medications Acetaminophen (Tylenol 325mg Tab) 650 mg PO Q6H PRN PRN Reason: Pain, moderate (4-7) Albuterol/Ipratropium (Duoneb 3 Mg/0.5 Mg (3 Ml) Ud) 3 ml IH [id number] PRN PRN Reason: Shortness of Breath Last Admin: 05/06/16 21:29 Dose: 3 ml Arformoterol Tartrate (Brovana) 15 mcg IH [id number] [facility] Last Admin: 05/08/16 08:45 Dose: 15 mcg Budesonide (Pulmicort Respules) 1 mg IH [id number] [facility] Last Admin: 05/08/16 08:45 Dose: 0.5 mg Enoxaparin Sodium (Lovenox) 40 mg SC DAILY [facility] PRN Reason: Protocol Last Admin: 05/08/16 10:09 Dose: 40 mg Vancomycin HCl (Vancomycin 1gm) 250 mls @ 167 mls/hr IVPB Q12H JT PRN Reason: Protocol Last Admin: 05/08/16 05:54 Dose: 167 mls/hr Insulin Human Regular (Humulin R Med) 0 units SC ACHS JT PRN Reason: Protocol Last Admin: 05/08/16 12:30 Dose: 1 units Mupirocin (Bactroban Ointment) 0 gm NS BID [facility] Stop: 05/10/16 10:01 Last Admin: 05/08/16 10:09 Dose: 1 applic Nystatin (Nystop Topical Powder) 0 gm TOP BID [facility] Last Admin: 05/08/16 10:10 Dose: 1 applic Pantoprazole Sodium (Protonix Ec Tab) 40 mg PO DAILY [facility] Last Admin: 05/08/16 10:10 Dose: Not Given Tiotropium [place] (Spiriva) 18 mcg IH DAILY [facility] Last Admin: 05/08/16 10:10 Dose: 18 mcg - Labs Labs: 05/08/16 07:00 05/08/16 07:00 PT 11.9 Seconds (9.9-11.8) H 05/03/16 14:30 INR 1.10 (0.93-1.08) H 05/03/16 14:30 APTT 30.7 Seconds (23.7-30.8) 05/03/16 14:30 Assessment and Plan - Assessment and Plan (Free Text) Assessment: attending note; Patient seen and examined with resident. Patient is a 65 year old male with obesity, uncontrolled DM-2, non compliance with medications, asthma, copd, cholecystectomy who got admitted for multiple skin lesions including carbuncle on the nape of neck and right buttocks and cellulitis on right thumb. He failed outpatient cipro and warm compresses. CT neck, chest, abdomen, pelvis showed cellulitis and early abscess formation. He underwent I&D of right buttock. has christos drain in place. continue to follow up with surgery for dressing change. His neck abscess is also draining and swelling has improved. Cellulitis of right thumb has improved as well. HIV is negative. Wound culture is growing MRSA. Continue IV vanco and bactroban. Continue nystatin powder for tinea cruris. HBA1C is 11.3. Diabetic education provided diabetic nurse educator. Dietary education given. He has watched learning videos. He needs to learn how to self inject insulin. and continue humilin 70/30.dosage increased today. Upon discharge patient will follow up with PMD Dr. Vallecillo. Attending/Attestation - Attestation I have personally seen and examined this patient.: Yes I have fully participated in the care of the patient.: Yes I have reviewed all pertinent clinical information, including history, physical exam and plan: Yes
--- NOTE | 2016-05-08 18:11 | CP.PCM.PN ---
Subjective - Date & Time of Evaluation Date of Evaluation: 05/08/16 Time of Evaluation: 11:15 - Subjective Subjective: Less pain in the buttocks, not in distress. Objective - Vital Signs/Intake and Output Vital Signs (last 24 hours): Temp Pulse Resp BP Pulse Ox 98.3 F 55 L 18 155/86 H 96 05/08/16 16:00 05/08/16 16:00 05/08/16 16:00 05/08/16 16:00 05/08/16 16:00 Intake and Output: 05/08/16 05/08/16 06:59 18:59 Intake Total 730 600 Output Total 500 150 Balance 230 450 - Medications Medications: Current Medications Acetaminophen (Tylenol 325mg Tab) 650 mg PO Q6H PRN PRN Reason: Pain, moderate (4-7) Albuterol/Ipratropium (Duoneb 3 Mg/0.5 Mg (3 Ml) Ud) 3 ml IH [id number] PRN PRN Reason: Shortness of Breath Last Admin: 05/06/16 21:29 Dose: 3 ml Arformoterol Tartrate (Brovana) 15 mcg IH [id number] [facility] Last Admin: 05/08/16 08:45 Dose: 15 mcg Budesonide (Pulmicort Respules) 1 mg IH [id number] [facility] Last Admin: 05/08/16 08:45 Dose: 0.5 mg Enoxaparin Sodium (Lovenox) 40 mg SC DAILY [facility] PRN Reason: Protocol Last Admin: 05/08/16 10:09 Dose: 40 mg Vancomycin HCl (Vancomycin 1gm) 250 mls @ 167 mls/hr IVPB Q12H JT PRN Reason: Protocol Last Admin: 05/08/16 05:54 Dose: 167 mls/hr Insulin Human Regular (Humulin R Med) 0 units SC ACHS JT PRN Reason: Protocol Last Admin: 05/08/16 12:30 Dose: 1 units Mupirocin (Bactroban Ointment) 0 gm NS BID [facility] Stop: 05/10/16 10:01 Last Admin: 05/08/16 10:09 Dose: 1 applic Nystatin (Nystop Topical Powder) 0 gm TOP BID [facility] Last Admin: 05/08/16 10:10 Dose: 1 applic Pantoprazole Sodium (Protonix Ec Tab) 40 mg PO DAILY [facility] Last Admin: 05/08/16 10:10 Dose: Not Given Tiotropium [place] (Spiriva) 18 mcg IH DAILY JT Last Admin: 05/08/16 10:10 Dose: 18 mcg - Labs Labs: 05/08/16 07:00 05/08/16 07:00 PT 11.9 Seconds (9.9-11.8) H 05/03/16 14:30 INR 1.10 (0.93-1.08) H 05/03/16 14:30 APTT 30.7 Seconds (23.7-30.8) 05/03/16 14:30 - Constitutional Appears: Non-toxic, No Acute Distress - Head Exam Head Exam: NORMAL INSPECTION - Neck Exam Neck Exam: absent: Lymphadenopathy, Meningismus - Respiratory Exam Respiratory Exam: Decreased Breath Sounds - Cardiovascular Exam Cardiovascular Exam: +S1, +S2 - GI/Abdominal Exam GI & Abdominal Exam: Soft. absent: Tenderness Assessment and Plan - Assessment and Plan (Free Text) Plan: Assessment Sepsis secondary to gluteal abcess on the right in a patient with a history of skin abscesses, growing methicilin-resistant Staph aureus, S/P surgical drainage POD #3, slowly improving DM COPD HTN S/P cholecystectomy obesity with BMI 34 Plan continue Vancomycin; continue BActroban for the nares; when ready for discharge , the patient can be switched to PO antibiotics to complete the course of therapy Will continue to follow clinically
[2016-05-09] MEDS: Vancomycin 1gm in NS 250ml 250 ML IVPB SCH ×2 (06:03→18:16)
[2016-05-09] MEDS: Insulin Human NPH/Reg 70/30 Vial(3 ml) SC SCH ×2 (07:53→18:15)
[2016-05-09] MEDS: Insulin Reg-MEDIUM-Coverage SC SCH ×4 (07:56→23:49)
[2016-05-09 08:10] LABS: ADD MANUAL DIFF? NO
[2016-05-09] MEDS: Arformoterol 15 mcg/2 ml Inh Sol IH SCH ×2 (08:10→20:20)
[2016-05-09] MEDS: Budesonide 0.5 mg/2 ml Inhal Susp UD IH SCH ×2 (08:11→20:20)
[2016-05-09 08:14] LABS: BASO # 0.03 K/mm3 (0.0-2.0); BASO % 0.2 % (0.0-3.0); EOS # 0.7 (0.0-0.7); EOS % 5.5 % (1.5-5.0); GRAN # 9.73 (1.4-6.5); GRAN % 74.7 % (50.0-68.0); HEMATOCRIT 40.2 % (42.0-52.0); LYMPH # 1.9 (1.2-3.4); LYMPH % 14.5 % (22.0-35.0); MEAN CELL VOLUME 88.5 fL (80.0-105.0); MEAN CORPUSCULAR HEMOGLOBIN 29.3 pg (25.0-35.0); MEAN CORPUSCULAR HGB CONC 33.1 g/dl (31.0-37.0); MEAN PLATELET VOLUME 9.7 fl (7.0-11.0); MONO # 0.7 (0.1-0.6); MONO % 5.1 % (1.0-6.0); PLATELET COUNT 449 10^3/uL (120.0-450.0); RED CELL DISTRIBUTION WIDTH 12.8 % (11.5-14.5)
[2016-05-09 08:32] LABS: ALB/GLOB RATIO 0.7 (1.1-1.8); ALKALINE PHOSPHATASE 146 U/L (38-133); ALT/SGPT 46 U/L (7-56); AST/SGOT 38 U/L (15-59); BILIRUBIN,TOTAL 0.5 mg/dL (0.2-1.3); BLOOD UREA NITROGEN 11 mg/dL (7-21); CALCIUM 8.4 mg/dL (8.4-10.5); CARBON DIOXIDE 29 mmol/L (21-33); CHLORIDE 99 mmol/L (98-107); GFR AFRICAN-AMERICAN > 60; GLUCOSE,RANDOM 197 mg/dL (70-110); POTASSIUM 4.3 mmol/L (3.6-5.0); SODIUM 135 mmol/L (132-148); TOTAL PROTEIN 7.1 g/dL (5.8-8.3)
--- NOTE | 2016-05-09 09:04 | CP.PCM.PN ---
Subjective - Date & Time of Evaluation Date of Evaluation: 05/09/16 Time of Evaluation: 09:01 - Subjective Subjective: SURGICAL PROGRESS NOTE FOR DR. SIMMONS Pt seen and examined. No acute events overnight. Cyst on back of neck started draining yesterday but has stopped this morning. Pt is having soft BMs. Objective - Vital Signs/Intake and Output Vital Signs (last 24 hours): Temp Pulse Resp BP Pulse Ox 98.3 F 55 L 18 155/86 H 96 05/08/16 16:00 05/08/16 16:00 05/08/16 16:00 05/08/16 16:00 05/08/16 16:00 Intake and Output: 05/09/16 05/09/16 06:59 18:59 Intake Total 840 Output Total 1400 Balance -560 - Medications Medications: Current Medications Acetaminophen (Tylenol 325mg Tab) 650 mg PO Q6H PRN PRN Reason: Pain, moderate (4-7) Albuterol/Ipratropium (Duoneb 3 Mg/0.5 Mg (3 Ml) Ud) 3 ml IH [id number] PRN PRN Reason: Shortness of Breath Last Admin: 05/06/16 21:29 Dose: 3 ml Arformoterol Tartrate (Brovana) 15 mcg IH [id number] [facility] Last Admin: 05/09/16 08:10 Dose: 15 mcg Budesonide (Pulmicort Respules) 1 mg IH [id number] JT Last Admin: 05/09/16 08:11 Dose: 1 mg Enoxaparin Sodium (Lovenox) 40 mg SC DAILY JT PRN Reason: Protocol Last Admin: 05/08/16 10:09 Dose: 40 mg Vancomycin HCl (Vancomycin 1gm) 250 mls @ 167 mls/hr IVPB Q12H JT PRN Reason: Protocol Last Admin: 05/09/16 06:03 Dose: 167 mls/hr Insulin Human Regular (Humulin R Med) 0 units SC ACHS JT PRN Reason: Protocol Last Admin: 05/09/16 07:56 Dose: 1 units Mupirocin (Bactroban Ointment) 0 gm NS BID [facility]T Stop: 05/10/16 10:01 Last Admin: 05/08/16 18:05 Dose: 1 applic Nystatin (Nystop Topical Powder) 0 gm TOP BID [facility] Last Admin: 05/08/16 18:07 Dose: 1 applic Pantoprazole Sodium (Protonix Ec Tab) 40 mg PO DAILY [facility] Last Admin: 05/08/16 10:10 Dose: Not Given Tiotropium [place] (Spiriva) 18 mcg IH DAILY [facility] Last Admin: 05/08/16 10:10 Dose: 18 mcg - Labs Labs: 05/09/16 08:00 05/09/16 08:00 PT 11.9 Seconds (9.9-11.8) H 05/03/16 14:30 INR 1.10 (0.93-1.08) H 05/03/16 14:30 APTT 30.7 Seconds (23.7-30.8) 05/03/16 14:30 - Constitutional Appears: Non-toxic, No Acute Distress - Head Exam Head Exam: ATRAUMATIC - ENT Exam ENT Exam: Mucous Membranes Moist - Respiratory Exam Respiratory Exam: absent: Accessory Muscle Use, Respiratory Distress - GI/Abdominal Exam GI & Abdominal Exam: Soft. absent: Distended, Firm, Guarding, Rigid, Tenderness - Neurological Exam Neurological Exam: Alert, Awake, Oriented x3 - Psychiatric Exam Psychiatric exam: Normal Affect, Normal Mood - Skin Skin Exam: Dry, Normal Color, Warm Additional comments: neck cyst is not draining now Assessment and Plan - Assessment and Plan (Free Text) Assessment: 65 y/o M w/ multiple abscess POD #4 s/p I&D in OR. - IV antibiotics per ID recs - pain management - Will remove 2 drains today. - cont medical management Discussed w/ Dr. Simmons for further recs Arti Amin PGY1
[2016-05-09] MEDS: Nystatin 100,000 Units/gm Topical Pow(15 gm) TOP SCH ×2 (09:20→18:15)
[2016-05-09] MEDS: Enoxaparin 40 mg Syringe SC SCH (11:18)
[2016-05-09] MEDS: Pantoprazole 40 mg EC Tab PO SCH ×2 (11:19→11:29)
[2016-05-09] MEDS: Tiotropium 18 mcg Cap For Inhalation IH SCH (11:19)
--- NOTE | 2016-05-09 16:11 | CP.PCM.PN ---
<Grayson Patel - Last Filed: 05/09/16 16:04> Subjective - Date & Time of Evaluation Date of Evaluation: 05/09/16 Time of Evaluation: 07:45 - Subjective Subjective: Dr. Patel PGY 1 Hospitalist Note Patient seen and evaluated at bedside. He reports having more drainage from the wound on the back of his neck today. He also has noticed the bed is moist where this buttock abscess is draining. His pain is controlled and he is tolerating his diet. He had donuts and soda on the tray next to his bed and informed this was not part of a diabetic diet. He claims his sister brings him food but he does not eat it. He was re-educated about maintaining acceptable glucose levels. A 12 point review of systems was negative except where indicated above. Objective - Vital Signs/Intake and Output Vital Signs (last 24 hours): Temp Pulse Resp BP Pulse Ox 97.9 F 74 20 151/92 H 95 05/09/16 07:30 05/09/16 07:30 05/09/16 07:30 05/09/16 07:30 05/09/16 07:30 Intake and Output: 05/09/16 05/09/16 06:59 18:59 Intake Total 840 720 Output Total 1400 600 Balance -560 120 - Medications Medications: Current Medications Acetaminophen (Tylenol 325mg Tab) 650 mg PO Q6H PRN PRN Reason: Pain, moderate (4-7) Albuterol/Ipratropium (Duoneb 3 Mg/0.5 Mg (3 Ml) Ud) 3 ml IH [id number] PRN PRN Reason: Shortness of Breath Last Admin: 05/06/16 21:29 Dose: 3 ml Arformoterol Tartrate (Brovana) 15 mcg IH [id number] JT Last Admin: 05/09/16 08:10 Dose: 15 mcg Budesonide (Pulmicort Respules) 1 mg IH [id number] JT Last Admin: 05/09/16 08:11 Dose: 1 mg Enoxaparin Sodium (Lovenox) 40 mg SC DAILY [facility]T PRN Reason: Protocol Last Admin: 05/09/16 11:18 Dose: 40 mg Vancomycin HCl (Vancomycin 1gm) 250 mls @ 167 mls/hr IVPB Q12H [facility]T PRN Reason: Protocol Last Admin: 05/09/16 06:03 Dose: 167 mls/hr Insulin Human Regular (Humulin R Med) 0 units SC ACHS [facility] PRN Reason: Protocol Last Admin: 05/09/16 11:22 Dose: 5 units Mupirocin (Bactroban Ointment) 0 gm NS BID [facility] Stop: 05/10/16 10:01 Last Admin: 05/09/16 08:50 Dose: 1 applic Nystatin (Nystop Topical Powder) 0 gm TOP BID [facility] Last Admin: 05/09/16 09:20 Dose: 1 applic Pantoprazole Sodium (Protonix Ec Tab) 40 mg PO DAILY [facility] Last Admin: 05/09/16 11:29 Dose: Not Given Tiotropium [place] (Spiriva) 18 mcg IH DAILY [facility] Last Admin: 05/09/16 11:19 Dose: 18 mcg - Labs Labs: 05/09/16 08:00 05/09/16 08:00 PT 11.9 Seconds (9.9-11.8) H 05/03/16 14:30 INR 1.10 (0.93-1.08) H 05/03/16 14:30 APTT 30.7 Seconds (23.7-30.8) 05/03/16 14:30 - Constitutional Appears: Non-toxic, No Acute Distress - Head Exam Head Exam: ATRAUMATIC, NORMOCEPHALIC. absent: NORMAL INSPECTION (cellulitic area with expressable purulent drainage) - Eye Exam Eye Exam: EOMI, Normal appearance, PERRL Pupil Exam: NORMAL ACCOMODATION, PERRL - ENT Exam ENT Exam: Mucous Membranes Moist. absent: Normal Oropharynx (poor dentition) - Neck Exam Neck Exam: Full ROM. absent: Tenderness, Thyromegaly - Respiratory Exam Respiratory Exam: Clear to Ausculation Bilateral, NORMAL BREATHING PATTERN. absent: Rales, Rhonchi, Wheezes - Cardiovascular Exam Cardiovascular Exam: REGULAR RHYTHM, +S1, +S2. absent: Gallop, Rubs, Murmur - GI/Abdominal Exam GI & Abdominal Exam: Soft, Normal Bowel Sounds. absent: Tenderness - Extremities Exam Extremities Exam: absent: Normal Inspection (multiple abrasians on LE and hands) , Pedal Edema, Tenderness - Back Exam Back Exam: absent: NORMAL INSPECTION (abscess onright buttock with drains, clean and dressed) - Neurological Exam Neurological Exam: Alert, Awake, CN II-XII Intact, Oriented x3 - Psychiatric Exam Psychiatric exam: Normal Affect, Normal Mood - Skin Skin Exam: Dry, Intact, Warm Assessment and Plan - Assessment and Plan (Free Text) Assessment: 65 yo male ith PMH of asthma, copd, emphysema, dm presented to ED with sepsis 2/ 2 multiple skin abscess with hyperglycemia. CT neck, chest, abd, pelvis showed skin and subcutaneous thickening and stranding posterior neck suggestive of cellulitis, no discrete abscess. skin thickening and phlegmon of posterior aspect of R buttock with early abscess formation. s/p I&D day 4 Plan: 1. sepsis 2/2 mutiple skin abscess * ID consulted help appreciated * lucrecia consulted, help appreciated * leukocytosis of 13.5 today * CT neck, chest, abdm pelvis- skin and subcutaneous thickening and stranding posterior neck suggestive of cellulitis, no discrete abscess. skin thickening and phlegmon of posterior aspect of R buttock with early abscess formation [ see full report] * continue vancomycin and consider switching to oral Bactrim on discharge * continue Bactroban for nares * warm compresses * procalcitonin wnl * HIV non reactive * blood cultures negative * wound cultures show MRSA growth, contact precautions * s/p I&D day 4 * pain controlled tylenol * drains to be removed by surgery team and educated on home wound dressing 2. DM/ hyperglycemia * ISSS-med * accuchecks ACHS * hgbA1c 11.3 * counselled on importance of medication and diet compliance * continue NPH 70/30 5U SC Q12H * diabetic counseling performed * shown [employer] diabetic education videos * planning for insulin and jiardiance for discharge 3. tinea cruris * improved * continue nystain powder 4. asthma, COPD, emphysema * cont home meds advair and spiriva * cont duoneb q6 prn 5. ppx * protonix * lovenox SX Assessment and plan discussed with attending physician <Ailyn Valdes - Last Filed: 05/09/16 17:41> Objective - Vital Signs/Intake and Output Vital Signs (last 24 hours): Temp Pulse Resp BP Pulse Ox 97.9 F 74 20 151/92 H 95 05/09/16 07:30 05/09/16 07:30 05/09/16 07:30 05/09/16 07:30 05/09/16 07:30 Intake and Output: 05/09/16 05/09/16 06:59 18:59 Intake Total 840 720 Output Total 1400 600 Balance -560 120 - Medications Medications: Current Medications Acetaminophen (Tylenol 325mg Tab) 650 mg PO Q6H PRN PRN Reason: Pain, moderate (4-7) Albuterol/Ipratropium (Duoneb 3 Mg/0.5 Mg (3 Ml) Ud) 3 ml IH [id number] PRN PRN Reason: Shortness of Breath Last Admin: 05/06/16 21:29 Dose: 3 ml Arformoterol Tartrate (Brovana) 15 mcg IH [id number] [facility] Last Admin: 05/09/16 08:10 Dose: 15 mcg Budesonide (Pulmicort Respules) 1 mg IH [id number] [facility] Last Admin: 05/09/16 08:11 Dose: 1 mg Enoxaparin Sodium (Lovenox) 40 mg SC DAILY [facility]T PRN Reason: Protocol Last Admin: 05/09/16 11:18 Dose: 40 mg Vancomycin HCl (Vancomycin 1gm) 250 mls @ 167 mls/hr IVPB Q12H JT PRN Reason: Protocol Last Admin: 05/09/16 06:03 Dose: 167 mls/hr Insulin Human Regular (Humulin R Med) 0 units SC ACHS JT PRN Reason: Protocol Last Admin: 05/09/16 11:22 Dose: 5 units Mupirocin (Bactroban Ointment) 0 gm NS BID [facility] Stop: 05/10/16 10:01 Last Admin: 05/09/16 08:50 Dose: 1 applic Nystatin (Nystop Topical Powder) 0 gm TOP BID [facility] Last Admin: 05/09/16 09:20 Dose: 1 applic Pantoprazole Sodium (Protonix Ec Tab) 40 mg PO DAILY [facility] Last Admin: 05/09/16 11:29 Dose: Not Given Tiotropium [place] (Spiriva) 18 mcg IH DAILY [facility] Last Admin: 05/09/16 11:19 Dose: 18 mcg - Labs Labs: 05/09/16 08:00 05/09/16 08:00 PT 11.9 Seconds (9.9-11.8) H 05/03/16 14:30 INR 1.10 (0.93-1.08) H 05/03/16 14:30 APTT 30.7 Seconds (23.7-30.8) 05/03/16 14:30 Assessment and Plan - Assessment and Plan (Free Text) Assessment: attending note; Patient seen and examined with resident. Patient is a 65 year old male with obesity, uncontrolled DM-2, non compliance with medications, asthma, copd, cholecystectomy who got admitted for multiple skin lesions including carbuncle on the nape of neck and right buttock and cellulitis on right thumb. He failed outpatient cipro and warm compresses. CT neck, chest, abdomen, pelvis showed cellulitis and early abscess formation. He underwent I&D of right buttock. has christos drain in place. continue to follow up with surgery for dressing change. His neck abscess is also draining and swelling has improved. Cellulitis of right thumb has improved as well. HIV is negative. Wound culture is growing MRSA. Continue IV vancomycin and bactroban. HBA1C is 11.3. Diabetic education provided diabetic nurse educator. Dietary education given. and continue humilin 70/30.dosage increased today. Upon discharge patient will follow up with PMD Dr. Vallecillo. Attending/Attestation - Attestation I have personally seen and examined this patient.: Yes I have fully participated in the care of the patient.: Yes I have reviewed all pertinent clinical information, including history, physical exam and plan: Yes
--- NOTE | 2016-05-09 17:47 | CP.PCM.PN ---
Subjective - Date & Time of Evaluation Date of Evaluation: 05/09/16 Time of Evaluation: 10:30 - Subjective Subjective: Comfortable in bed, less pain in the gluteal area, no fevers overnight. Objective - Vital Signs/Intake and Output Vital Signs (last 24 hours): Temp Pulse Resp BP Pulse Ox 97.9 F 74 20 151/92 H 95 05/09/16 07:30 05/09/16 07:30 05/09/16 07:30 05/09/16 07:30 05/09/16 07:30 Intake and Output: 05/09/16 05/09/16 06:59 18:59 Intake Total 840 720 Output Total 1400 600 Balance -560 120 - Medications Medications: Current Medications Acetaminophen (Tylenol 325mg Tab) 650 mg PO Q6H PRN PRN Reason: Pain, moderate (4-7) Albuterol/Ipratropium (Duoneb 3 Mg/0.5 Mg (3 Ml) Ud) 3 ml IH [id number] PRN PRN Reason: Shortness of Breath Last Admin: 05/06/16 21:29 Dose: 3 ml Arformoterol Tartrate (Brovana) 15 mcg IH [id number] [facility] Last Admin: 05/09/16 08:10 Dose: 15 mcg Budesonide (Pulmicort Respules) 1 mg IH [id number] [facility] Last Admin: 05/09/16 08:11 Dose: 1 mg Enoxaparin Sodium (Lovenox) 40 mg SC DAILY [facility] PRN Reason: Protocol Last Admin: 05/09/16 11:18 Dose: 40 mg Vancomycin HCl (Vancomycin 1gm) 250 mls @ 167 mls/hr IVPB Q12H [facility]T PRN Reason: Protocol Last Admin: 05/09/16 06:03 Dose: 167 mls/hr Insulin Human Regular (Humulin R Med) 0 units SC ACHS JT PRN Reason: Protocol Last Admin: 05/09/16 11:22 Dose: 5 units Mupirocin (Bactroban Ointment) 0 gm NS BID [facility] Stop: 05/10/16 10:01 Last Admin: 05/09/16 08:50 Dose: 1 applic Nystatin (Nystop Topical Powder) 0 gm TOP BID [facility] Last Admin: 05/09/16 09:20 Dose: 1 applic Pantoprazole Sodium (Protonix Ec Tab) 40 mg PO DAILY [facility] Last Admin: 05/09/16 11:29 Dose: Not Given Tiotropium [place] (Spiriva) 18 mcg IH DAILY [facility] Last Admin: 05/09/16 11:19 Dose: 18 mcg - Labs Labs: 05/09/16 08:00 05/09/16 08:00 PT 11.9 Seconds (9.9-11.8) H 05/03/16 14:30 INR 1.10 (0.93-1.08) H 05/03/16 14:30 APTT 30.7 Seconds (23.7-30.8) 05/03/16 14:30 - Constitutional Appears: Non-toxic, No Acute Distress - Head Exam Head Exam: NORMAL INSPECTION - ENT Exam ENT Exam: Mucous Membranes Moist - Neck Exam Neck Exam: absent: Lymphadenopathy, Meningismus - Respiratory Exam Respiratory Exam: Decreased Breath Sounds - Cardiovascular Exam Cardiovascular Exam: +S1, +S2 - GI/Abdominal Exam GI & Abdominal Exam: Soft. absent: Tenderness - Extremities Exam Additional comments: right gluteal area with dressings in place and drain Assessment and Plan - Assessment and Plan (Free Text) Plan: Assessment Sepsis secondary to gluteal abcess on the right in a patient with a history of skin abscesses, growing methicilin-resistant Staph aureus, S/P surgical drainage POD #5, slowly improving DM COPD HTN S/P cholecystectomy obesity with BMI 34 Plan continue Vancomycin; continue BActroban for the nares; when ready for discharge , the patient can be switched to PO antibiotics to complete the course of therapy (ie. when the drain is removed by surgery) Will continue to follow clinically
[2016-05-10] MEDS: Vancomycin 1gm in NS 250ml 250 ML IVPB SCH (05:45)
[2016-05-10] MEDS: Insulin Human NPH/Reg 70/30 Vial(3 ml) SC SCH ×2 (07:07→21:36)
[2016-05-10] MEDS: Insulin Reg-MEDIUM-Coverage SC SCH ×4 (07:11→21:35)
[2016-05-10 07:16] LABS: ADD MANUAL DIFF? NO
[2016-05-10 07:27] LABS: BASO # 0.04 K/mm3 (0.0-2.0); BASO % 0.3 % (0.0-3.0); EOS % 7.2 % (1.5-5.0); GRAN # 9.63 (1.4-6.5); GRAN % 71.4 % (50.0-68.0); LYMPH % 14.9 % (22.0-35.0); MEAN CELL VOLUME 89.4 fL (80.0-105.0); MEAN CORPUSCULAR HEMOGLOBIN 29.8 pg (25.0-35.0); MEAN CORPUSCULAR HGB CONC 33.3 g/dl (31.0-37.0); MEAN PLATELET VOLUME 9.6 fl (7.0-11.0); MONO # 0.8 (0.1-0.6); MONO % 6.2 % (1.0-6.0); PLATELET COUNT 466 10^3/uL (120.0-450.0); RED CELL DISTRIBUTION WIDTH 12.9 % (11.5-14.5); WHITE BLOOD COUNT 13.5 10^3/ul (4.5-11.0)
[2016-05-10] MEDS: Budesonide 0.5 mg/2 ml Inhal Susp UD IH SCH ×2 (07:37→20:52)
[2016-05-10] MEDS: Arformoterol 15 mcg/2 ml Inh Sol IH SCH ×2 (07:37→20:52)
[2016-05-10 07:48] LABS: ALB/GLOB RATIO 0.7 (1.1-1.8); ALKALINE PHOSPHATASE 146 U/L (38-133); ALT/SGPT 49 U/L (7-56); AST/SGOT 34 U/L (15-59); BILIRUBIN,TOTAL 0.5 mg/dL (0.2-1.3); BLOOD UREA NITROGEN 11 mg/dL (7-21); CALCIUM 8.5 mg/dL (8.4-10.5); CARBON DIOXIDE 28 mmol/L (21-33); CHLORIDE 101 mmol/L (98-107); GFR AFRICAN-AMERICAN > 60; GLUCOSE,RANDOM 172 mg/dL (70-110); POTASSIUM 4.6 mmol/L (3.6-5.0); SODIUM 136 mmol/L (132-148); TOTAL PROTEIN 7.1 g/dL (5.8-8.3)
[2016-05-10] MEDS ORDERED: MethylPREDNISolone 40 mg Vial IVP STA (08:10)
[2016-05-10] MEDS: DiphenhydrAMINE 50 mg/ml Inj IVP STA ×2 (08:33→08:46)
--- NOTE | 2016-05-10 08:41 | CP.PCM.PN ---
Subjective - Date & Time of Evaluation Date of Evaluation: 05/10/16 Time of Evaluation: 08:39 - Subjective Subjective: SURGICAL PROGRESS NOTE FOR DR. SIMMONS Pt seen and examined at bedside. No acute events overnight. States that rectal pain has improved. Denies having any fevers, chills, N/V/D/C. Tolerating diet and is ambulating without difficulty. Objective - Vital Signs/Intake and Output Vital Signs (last 24 hours): Temp Pulse Resp BP Pulse Ox 98.8 F 82 20 139/84 96 05/09/16 16:00 05/09/16 16:00 05/09/16 16:00 05/09/16 16:00 05/09/16 16:00 Intake and Output: 05/10/16 05/10/16 06:59 18:59 Intake Total 1580 Output Total 900 Balance 680 - Medications Medications: Current Medications Acetaminophen (Tylenol 325mg Tab) 650 mg PO Q6H PRN PRN Reason: Pain, moderate (4-7) Albuterol/Ipratropium (Duoneb 3 Mg/0.5 Mg (3 Ml) Ud) 3 ml IH [id number] PRN PRN Reason: Shortness of Breath Last Admin: 05/06/16 21:29 Dose: 3 ml Arformoterol Tartrate (Brovana) 15 mcg IH [id number] [facility] Last Admin: 05/10/16 07:37 Dose: 15 mcg Budesonide (Pulmicort Respules) 1 mg IH [id number] [facility] Last Admin: 05/10/16 07:37 Dose: 1 mg Enoxaparin Sodium (Lovenox) 40 mg SC DAILY [facility]T PRN Reason: Protocol Last Admin: 05/09/16 11:18 Dose: 40 mg Vancomycin HCl (Vancomycin 1gm) 250 mls @ 167 mls/hr IVPB Q12H [facility]T PRN Reason: Protocol Last Admin: 05/10/16 05:45 Dose: 167 mls/hr Insulin Human Regular (Humulin R Med) 0 units SC ACHS JT PRN Reason: Protocol Last Admin: 05/10/16 07:11 Dose: 1 units Mupirocin (Bactroban Ointment) 0 gm NS BID [facility]T Stop: 05/10/16 10:01 Last Admin: 05/09/16 18:14 Dose: 1 applic Nystatin (Nystop Topical Powder) 0 gm TOP BID [facility] Last Admin: 05/09/16 18:15 Dose: 1 applic Pantoprazole Sodium (Protonix Ec Tab) 40 mg PO DAILY [facility] Last Admin: 05/09/16 11:29 Dose: Not Given Tiotropium [place] (Spiriva) 18 mcg IH DAILY [facility] Last Admin: 05/09/16 11:19 Dose: 18 mcg - Labs Labs: 05/10/16 05:30 05/10/16 05:30 PT 11.9 Seconds (9.9-11.8) H 05/03/16 14:30 INR 1.10 (0.93-1.08) H 05/03/16 14:30 APTT 30.7 Seconds (23.7-30.8) 05/03/16 14:30 - Constitutional Appears: Non-toxic, No Acute Distress - Head Exam Head Exam: ATRAUMATIC - Respiratory Exam Respiratory Exam: absent: Accessory Muscle Use, Respiratory Distress - GI/Abdominal Exam GI & Abdominal Exam: Soft. absent: Distended, Firm, Guarding, Rigid, Tenderness - Rectal Exam Additional comments: [address] with dressing over them - Neurological Exam Neurological Exam: Alert, Awake, Oriented x3 - Psychiatric Exam Psychiatric exam: Normal Affect, Normal Mood - Skin Skin Exam: Dry, Intact, Normal Color, Warm Assessment and Plan - Assessment and Plan (Free Text) Assessment: 65 y/o M w/ multiple abscess POD #5 s/p I&D in OR. - IV antibiotics per ID recs - pain management - Removed 3 drains. Patient has one drain in place and will be discharged with this drain. He is asked to follow up with Dr. Simmons outpatient for this drain. Patient is safe for discharge from surgical point of view. - cont medical management Discussed w/ Dr. Simmons for further recs Arti Amin PGY1
[2016-05-10] MEDS: Tiotropium 18 mcg Cap For Inhalation IH SCH (09:26)
[2016-05-10] MEDS: Pantoprazole 40 mg EC Tab PO SCH (09:26)
[2016-05-10] MEDS: Nystatin 100,000 Units/gm Topical Pow(15 gm) TOP SCH ×2 (09:26→17:28)
[2016-05-10] MEDS: Enoxaparin 40 mg Syringe SC SCH (09:26)
--- NOTE | 2016-05-10 15:14 | CP.PCM.PN ---
<Grayson Patel - Last Filed: 05/10/16 15:07> Subjective - Date & Time of Evaluation Date of Evaluation: 05/10/16 Time of Evaluation: 07:45 - Subjective Subjective: Dr. Patel PGY 1 Hospitalist Note Patient seen and evaluated at bedside. He complains of itching on his chest and back and pointed out he was getting a rash on his chest. He pointed out his neck continues to drain purulent fluid on his pillow. He also states the wound on his buttock drains onto the bed at night. Per nursing, the patient was eating candy bars and drinking sodas even though he has been counseled on keeping a diabetic diet. He currently denies any chest pain, abdominal pain, SOB , fever, chills, nausea, or vomiting. Objective - Vital Signs/Intake and Output Vital Signs (last 24 hours): Temp Pulse Resp BP Pulse Ox 97.9 F 73 18 142/83 96 05/10/16 09:14 05/10/16 09:14 05/10/16 09:14 05/10/16 09:14 05/10/16 09:14 Intake and Output: 05/10/16 05/10/16 06:59 18:59 Intake Total 1580 Output Total 900 Balance 680 - Medications Medications: Current Medications Acetaminophen (Tylenol 325mg Tab) 650 mg PO Q6H PRN PRN Reason: Pain, moderate (4-7) Albuterol/Ipratropium (Duoneb 3 Mg/0.5 Mg (3 Ml) Ud) 3 ml IH [id number] PRN PRN Reason: Shortness of Breath Last Admin: 05/06/16 21:29 Dose: 3 ml Arformoterol Tartrate (Brovana) 15 mcg IH [id number] ON LICENSE OF [facility] Last Admin: 05/10/16 07:37 Dose: 15 mcg Budesonide (Pulmicort Respules) 1 mg IH [id number] ON LICENSE OF [facility] Last Admin: 05/10/16 07:37 Dose: 1 mg Clindamycin HCl (Cleocin) 150 mg PO Q6 JT PRN Reason: Protocol Last Admin: 05/10/16 12:15 Dose: 150 mg Enoxaparin Sodium (Lovenox) 40 mg SC DAILY TJ PRN Reason: Protocol Last Admin: 05/10/16 09:26 Dose: 40 mg Vancomycin HCl (Vancomycin 1gm) 250 mls @ 167 mls/hr IVPB Q12H ON LICENSE OF [facility] PRN Reason: Protocol Last Admin: 05/10/16 05:45 Dose: 167 mls/hr Insulin Human Regular (Humulin R Med) 0 units SC ACHS ON LICENSE OF [facility] PRN Reason: Protocol Last Admin: 05/10/16 12:16 Dose: 5 units Nystatin (Nystop Topical Powder) 0 gm TOP BID ON [facility] OF [facility] Last Admin: 05/10/16 09:26 Dose: 1 applic Pantoprazole Sodium (Protonix Ec Tab) 40 mg PO DAILY ON [facility] OF [facility] Last Admin: 05/10/16 09:26 Dose: Not Given Tiotropium [place] (Spiriva) 18 mcg IH DAILY ON [facility] OF [facility] Last Admin: 05/10/16 09:26 Dose: 18 mcg - Labs Labs: 05/10/16 05:30 05/10/16 05:30 PT 11.9 Seconds (9.9-11.8) H 05/03/16 14:30 INR 1.10 (0.93-1.08) H 05/03/16 14:30 APTT 30.7 Seconds (23.7-30.8) 05/03/16 14:30 - Constitutional Appears: Older Than Stated Age - Head Exam Head Exam: ATRAUMATIC, NORMOCEPHALIC - Eye Exam Eye Exam: EOMI, Normal appearance, PERRL Pupil Exam: NORMAL ACCOMODATION, PERRL - ENT Exam ENT Exam: absent: Normal Exam (erythematous cellulitic region on neck with purulent drainage), Normal Oropharynx (poor dentition) - Respiratory Exam Respiratory Exam: Clear to Ausculation Bilateral, NORMAL BREATHING PATTERN. absent: Rales, Rhonchi, Wheezes - Cardiovascular Exam Cardiovascular Exam: REGULAR RHYTHM, +S1. absent: Gallop, Rubs, Murmur - GI/Abdominal Exam GI & Abdominal Exam: Soft, Normal Bowel Sounds. absent: Guarding, Tenderness - Extremities Exam Extremities Exam: absent: Normal Inspection (multiple slow healing lesions on all four extremities), Pedal Edema, Tenderness - Back Exam Back Exam: rash noted (maculpapular rash). absent: NORMAL INSPECTION (abscess on right buttock, drain in place, clean and dressed by surgery), tenderness - Neurological Exam Neurological Exam: Alert, Awake, CN II-XII Intact, Oriented x3 - Psychiatric Exam Psychiatric exam: Normal Affect, Normal Mood - Skin Skin Exam: Dry, Rash (maculopapular rash on chst and back), Warm Assessment and Plan - Assessment and Plan (Free Text) Assessment: 65 yo male ith PMH of asthma, copd, emphysema, dm presented to ED with sepsis 2/ 2 multiple skin abscess with hyperglycemia. CT neck, chest, abd, pelvis showed skin and subcutaneous thickening and stranding posterior neck suggestive of cellulitis, no discrete abscess. skin thickening and phlegmon of posterior aspect of R buttock with early abscess formation. s/p I&D day 5. Maculopapular rash on chest and back. Plan: 1. sepsis 2/2 mutiple skin abscess * ID consulted help appreciated * lucrecia consulted, help appreciated * leukocytosis of 13.5 today * CT neck, chest, abdm pelvis- skin and subcutaneous thickening and stranding posterior neck suggestive of cellulitis, no discrete abscess. skin thickening and phlegmon of posterior aspect of R buttock with early abscess formation [ see full report] * Stop vancomycin due to rash and start on Cleocin * continue Bactroban for nares * warm compresses * procalcitonin wnl * HIV non reactive * blood cultures negative * wound cultures show MRSA growth, contact precautions * s/p I&D day 5 * pain controlled tylenol * drain remains in place 2. DM/ hyperglycemia * ISSS-med * accuchecks ACHS * hgbA1c 11.3 * counselled on importance of medication and diet compliance * continue NPH 70/30 5U SC Q12H * diabetic counseling performed * shown [employer] diabetic education videos * planning for insulin and jiardiance for discharge 3. tinea cruris * improved * continue nystain powder 4. asthma, COPD, emphysema * cont home meds advair and spiriva * cont duoneb q6 prn 5. ppx * protonix * lovenox SX Assessment and plan discussed with attending physician <Ailyn Valdes - Last Filed: 05/10/16 17:57> Objective - Vital Signs/Intake and Output Vital Signs (last 24 hours): Temp Pulse Resp BP Pulse Ox 97.9 F 90 20 150/99 H 93 L 05/10/16 16:00 05/10/16 16:00 05/10/16 16:00 05/10/16 16:00 05/10/16 16:00 Intake and Output: 05/10/16 05/10/16 06:59 18:59 Intake Total 1580 Output Total 900 Balance 680 - Medications Medications: Current Medications Acetaminophen (Tylenol 325mg Tab) 650 mg PO Q6H PRN PRN Reason: Pain, moderate (4-7) Albuterol/Ipratropium (Duoneb 3 Mg/0.5 Mg (3 Ml) Ud) 3 ml IH [id number] PRN PRN Reason: Shortness of Breath Last Admin: 05/06/16 21:29 Dose: 3 ml Arformoterol Tartrate (Brovana) 15 mcg IH [id number] ON [facility] OF [facility] Last Admin: 05/10/16 07:37 Dose: 15 mcg Budesonide (Pulmicort Respules) 1 mg IH [id number] ON LICENSE OF [facility] Last Admin: 05/10/16 07:37 Dose: 1 mg Clindamycin HCl (Cleocin) 150 mg PO Q6 JT PRN Reason: Protocol Last Admin: 05/10/16 17:27 Dose: 150 mg Enoxaparin Sodium (Lovenox) 40 mg SC DAILY JT PRN Reason: Protocol Last Admin: 05/10/16 09:26 Dose: 40 mg Vancomycin HCl (Vancomycin 1gm) 250 mls @ 167 mls/hr IVPB Q12H JT PRN Reason: Protocol Last Admin: 05/10/16 05:45 Dose: 167 mls/hr Insulin Human Regular (Humulin R Med) 0 units SC ACHS JT PRN Reason: Protocol Last Admin: 05/10/16 17:27 Dose: 7 units Nystatin (Nystop Topical Powder) 0 gm TOP BID ON [facility] OF [facility] Last Admin: 05/10/16 17:28 Dose: 1 applic Pantoprazole Sodium (Protonix Ec Tab) 40 mg PO DAILY ON [facility] OF [facility] Last Admin: 05/10/16 09:26 Dose: Not Given Tiotropium [place] (Spiriva) 18 mcg IH DAILY ON [facility] OF [facility] Last Admin: 05/10/16 09:26 Dose: 18 mcg - Labs Labs: 05/10/16 05:30 05/10/16 05:30 PT 11.9 Seconds (9.9-11.8) H 05/03/16 14:30 INR 1.10 (0.93-1.08) H 05/03/16 14:30 APTT 30.7 Seconds (23.7-30.8) 05/03/16 14:30 Assessment and Plan - Assessment and Plan (Free Text) Assessment: attending note; Patient seen and examined with resident. Patient is a 65 year old male with obesity, uncontrolled DM-2, non compliance with medications, asthma, copd, cholecystectomy who got admitted for multiple skin lesions including carbuncle on the nape of neck and right buttock and cellulitis on right thumb. He failed outpatient cipro and warm compresses. Had diffuse red rash in back and legs today. no shortness of breath and chest discomfort. benadryl and iv solumedrol given. IV vancomycin stopped. started on po clindamycin. He underwent I&D of right buttock. has christos drain in place. 3 drains removed so far. continue to follow up with surgery for dressing change. Cellulitis of right thumb has improved as well. HIV is negative. Wound culture is growing MRSA. HBA1C is 11.3. Diabetic education provided diabetic nurse educator. Dietary education given. and continue humilin 70/30.dosage increased today. Upon discharge patient will follow up with PMD Dr. Vallecillo. Attending/Attestation - Attestation I have personally seen and examined this patient.: Yes I have fully participated in the care of the patient.: Yes I have reviewed all pertinent clinical information, including history, physical exam and plan: Yes
[2016-05-10] MEDS ORDERED: Insulin Human NPH/Reg 70/30 Vial(3 ml) SC SCH (20:00)
[2016-05-11 07:21] LABS: HEMATOCRIT 38.1 % (42.0-52.0); MEAN CELL VOLUME 89.2 fL (80.0-105.0); MEAN CORPUSCULAR HGB CONC 32.5 g/dl (31.0-37.0); MEAN PLATELET VOLUME 9.7 fl (7.0-11.0); PLATELET COUNT 511 10^3/uL (120.0-450.0); WHITE BLOOD COUNT 22.2 10^3/ul (4.5-11.0)
[2016-05-11 07:27] LABS: ADD MANUAL DIFF? YES
[2016-05-11 07:29] LABS: ALB/GLOB RATIO 0.8 (1.1-1.8); ALKALINE PHOSPHATASE 136 U/L (38-133); ALT/SGPT 45 U/L (7-56); AST/SGOT 36 U/L (15-59); BILIRUBIN,TOTAL 0.4 mg/dL (0.2-1.3); BLOOD UREA NITROGEN 16 mg/dL (7-21); CALCIUM 8.7 mg/dL (8.4-10.5); CARBON DIOXIDE 28 mmol/L (21-33); CHLORIDE 99 mmol/L (98-107); GFR AFRICAN-AMERICAN > 60; GLUCOSE,RANDOM 233 mg/dL (70-110); SODIUM 135 mmol/L (132-148)
[2016-05-11] MEDS: Arformoterol 15 mcg/2 ml Inh Sol IH SCH ×2 (07:56→20:38)
[2016-05-11] MEDS: Budesonide 0.5 mg/2 ml Inhal Susp UD IH SCH ×2 (07:56→20:38)
[2016-05-11 08:23] LABS: BAND 3 % (0-2)
[2016-05-11 08:24] LABS: ANISOCYTOSIS 1+; EOSINOPHIL 2 % (0.0-3.0); HYPOCHROMIA SLIGHT; NEUTROPHIL 83 % (50.0-70.0); PLATELET ESTIMATE HIGH (NORMAL)
[2016-05-11] MEDS: Insulin Reg-MEDIUM-Coverage SC SCH ×4 (08:32→21:48)
[2016-05-11] MEDS: Insulin Human NPH/Reg 70/30 Vial(3 ml) SC SCH ×2 (08:33→20:30)
[2016-05-11] MEDS: Pantoprazole 40 mg EC Tab PO SCH (09:43)
[2016-05-11] MEDS: Tiotropium 18 mcg Cap For Inhalation IH SCH (09:43)
[2016-05-11] MEDS: Nystatin 100,000 Units/gm Topical Pow(15 gm) TOP SCH (09:43)
[2016-05-11] MEDS: Enoxaparin 40 mg Syringe SC SCH (09:43)
[2016-05-11] MEDS: Hydrocortisone 1% Cream (30 GM) TOP SCH ×2 (11:01→17:21)
--- NOTE | 2016-05-11 11:26 | CP.PCM.PN ---
<Grayson Patel - Last Filed: 05/11/16 13:24> Subjective - Date & Time of Evaluation Date of Evaluation: 05/11/16 Time of Evaluation: 09:20 - Subjective Subjective: Dr. Patel PGY 1 Hospitalist Note Patient seen and evaluated in room. He is resting comfortably in his chair. He reports he continues to itch and his rash has spread onto his thighs. He says the benadryl and steroids yesterday helped with the itch. He notes that he rubbed nystatin powder on his chest, abdomen, and legs yesterday. He also reports reading the diabetic education books. He was told nursing would teach him to inject himself with insulin today. He denies any fevers, chills, nausea, vomiting, or abdominal pain. He says his buttock no longer hurts and he has less drainage coming from his neck. Per nursing, he was given benadryl for the itch over night. Objective - Vital Signs/Intake and Output Vital Signs (last 24 hours): Temp Pulse Resp BP Pulse Ox 97.7 F 74 18 158/89 H 96 05/11/16 08:56 05/11/16 08:56 05/11/16 08:56 05/11/16 08:56 05/11/16 08:56 Intake and Output: 05/11/16 05/11/16 06:59 18:59 Intake Total 1080 Output Total 600 Balance 480 - Medications Medications: Current Medications Acetaminophen (Tylenol 325mg Tab) 650 mg PO Q6H PRN PRN Reason: Pain, moderate (4-7) Albuterol/Ipratropium (Duoneb 3 Mg/0.5 Mg (3 Ml) Ud) 3 ml IH [id number] PRN PRN Reason: Shortness of Breath Last Admin: 05/06/16 21:29 Dose: 3 ml Arformoterol Tartrate (Brovana) 15 mcg IH [id number] JT Last Admin: 05/11/16 07:56 Dose: 15 mcg Budesonide (Pulmicort Respules) 1 mg IH [id number] JT Last Admin: 05/11/16 07:56 Dose: 1 mg Clindamycin HCl (Cleocin) 150 mg PO Q6 JT PRN Reason: Protocol Last Admin: 05/11/16 05:47 Dose: 150 mg Diphenhydramine HCl (Benadryl) 25 mg PO Q12 PRN PRN Reason: Insomnia Last Admin: 05/11/16 05:51 Dose: 25 mg Enoxaparin Sodium (Lovenox) 40 mg SC DAILY [facility] PRN Reason: Protocol Last Admin: 05/11/16 09:43 Dose: 40 mg Hydrocortisone (Cortizone 1% Cream) 0 gm TOP BID [facility] Last Admin: 05/11/16 11:01 Dose: 1 appl Insulin Human Regular (Humulin R Med) 0 units SC ACHS [facility] PRN Reason: Protocol Last Admin: 05/11/16 08:32 Dose: 3 units Pantoprazole Sodium (Protonix Ec Tab) 40 mg PO DAILY [facility] Last Admin: 05/11/16 09:43 Dose: Not Given Tiotropium [place] (Spiriva) 18 mcg IH DAILY [facility] Last Admin: 05/11/16 09:43 Dose: 18 mcg - Labs Labs: 05/11/16 06:15 05/11/16 06:15 PT 11.9 Seconds (9.9-11.8) H 05/03/16 14:30 INR 1.10 (0.93-1.08) H 05/03/16 14:30 APTT 30.7 Seconds (23.7-30.8) 05/03/16 14:30 - Constitutional Appears: Non-toxic, No Acute Distress - Head Exam Head Exam: ATRAUMATIC, NORMOCEPHALIC - Eye Exam Eye Exam: EOMI, Normal appearance, PERRL Pupil Exam: NORMAL ACCOMODATION, PERRL - ENT Exam ENT Exam: Mucous Membranes Moist. absent: Normal Oropharynx (poor dentition) - Neck Exam Neck Exam: absent: Normal Inspection (erythematous region on back of neck with expressible purulent drainage) - Respiratory Exam Respiratory Exam: Clear to Ausculation Bilateral, NORMAL BREATHING PATTERN. absent: Decreased Breath Sounds, Rales, Rhonchi, Wheezes, Respiratory Distress - Cardiovascular Exam Cardiovascular Exam: REGULAR RHYTHM, +S1, +S2. absent: Gallop, Rubs, Murmur - GI/Abdominal Exam GI & Abdominal Exam: Soft, Normal Bowel Sounds. absent: Distended, Tenderness - Extremities Exam Extremities Exam: absent: Normal Inspection (non healing lesions on legs, erythematous region on right hand), Pedal Edema - Back Exam Back Exam: rash noted. absent: NORMAL INSPECTION, tenderness - Neurological Exam Neurological Exam: Alert, Awake, CN II-XII Intact, Oriented x3 - Psychiatric Exam Psychiatric exam: Normal Affect, Normal Mood - Skin Skin Exam: Dry, Rash (blanching maculopapular rash), Warm Assessment and Plan - Assessment and Plan (Free Text) Assessment: 65 yo male ith PMH of asthma, copd, emphysema, dm presented to ED with sepsis 2/ 2 multiple skin abscess with hyperglycemia. CT neck, chest, abd, pelvis showed skin and subcutaneous thickening and stranding posterior neck suggestive of cellulitis, no discrete abscess. skin thickening and phlegmon of posterior aspect of R buttock with early abscess formation. s/p I&D day 6. Maculopapular rash on chest, back and legs. Plan: 1. sepsis 2/2 multiple skin abscesses * ID consulted help appreciated * lucrecia consulted, help appreciated * leukocytosis of 22.2 today * CT neck, chest, abdm pelvis- skin and subcutaneous thickening and stranding posterior neck suggestive of cellulitis, no discrete abscess. skin thickening and phlegmon of posterior aspect of R buttock with early abscess formation [ see full report] * wound cultures show MRSA growth, contact precautions * Stop vancomycin and nystatin due to rash * Continue Cleocin * continue Bactroban for nares * warm compresses * procalcitonin wnl * HIV non reactive * blood cultures negative * s/p I&D day 6 * pain controlled tylenol * drain remains in place 2. DM/ hyperglycemia * ISSS-med * accuchecks ACHS * hgbA1c 11.3 * counselled on importance of medication and diet compliance * nurse educated on self injection * diabetic counseling performed * [id number] * planning for insulin and jiardiance for discharge 3. tinea cruris * improved * stopped nystatin powder due to itch * started on cortisone cream 4. asthma, COPD, emphysema * cont home meds advair and spiriva * cont duoneb q6 prn 5. ppx * protonix * lovenox SX Assessment and plan discussed with attending physician <Ailyn Valdes - Last Filed: 05/11/16 17:14> Objective - Vital Signs/Intake and Output Vital Signs (last 24 hours): Temp Pulse Resp BP Pulse Ox 97.7 F 74 18 158/89 H 96 05/11/16 08:56 05/11/16 08:56 05/11/16 08:56 05/11/16 08:56 05/11/16 08:56 Intake and Output: 05/11/16 05/11/16 06:59 18:59 Intake Total 1080 600 Output Total 600 Balance 480 600 - Medications Medications: Current Medications Acetaminophen (Tylenol 325mg Tab) 650 mg PO Q6H PRN PRN Reason: Pain, moderate (4-7) Albuterol/Ipratropium (Duoneb 3 Mg/0.5 Mg (3 Ml) Ud) 3 ml IH [id number] PRN PRN Reason: Shortness of Breath Last Admin: 05/06/16 21:29 Dose: 3 ml Arformoterol Tartrate (Brovana) 15 mcg IH [id number] [facility] Last Admin: 05/11/16 07:56 Dose: 15 mcg Budesonide (Pulmicort Respules) 1 mg IH [id number] [facility] Last Admin: 05/11/16 07:56 Dose: 1 mg Clindamycin HCl (Cleocin) 150 mg PO Q6 JT PRN Reason: Protocol Last Admin: 05/11/16 11:54 Dose: 150 mg Diphenhydramine HCl (Benadryl) 25 mg PO Q12 PRN PRN Reason: Insomnia Last Admin: 05/11/16 05:51 Dose: 25 mg Enoxaparin Sodium (Lovenox) 40 mg SC DAILY JT PRN Reason: Protocol Last Admin: 05/11/16 09:43 Dose: 40 mg Hydrocortisone (Cortizone 1% Cream) 0 gm TOP BID [facility] Last Admin: 05/11/16 11:01 Dose: 1 appl Insulin Human Regular (Humulin R Med) 0 units SC ACHS JT PRN Reason: Protocol Last Admin: 05/11/16 11:54 Dose: 7 units Pantoprazole Sodium (Protonix Ec Tab) 40 mg PO DAILY [facility] Last Admin: 05/11/16 09:43 Dose: Not Given Tiotropium [place] (Spiriva) 18 mcg IH DAILY [facility] Last Admin: 05/11/16 09:43 Dose: 18 mcg - Labs Labs: 05/11/16 06:15 05/11/16 06:15 PT 11.9 Seconds (9.9-11.8) H 05/03/16 14:30 INR 1.10 (0.93-1.08) H 05/03/16 14:30 APTT 30.7 Seconds (23.7-30.8) 05/03/16 14:30 Assessment and Plan - Assessment and Plan (Free Text) Assessment: attending note; Patient seen and examined with resident. Patient is a 65 year old male with obesity, uncontrolled DM-2, non compliance with medications, asthma, copd, cholecystectomy who got admitted for multiple skin lesions including carbuncle on the nape of neck and right buttock and cellulitis on right thumb. Had diffuse red rash in back and legs today. slowly improving. benadryl and iv solumedrol given. IV vancomycin stopped. started on po clindamycin. case discussed with ID in detail. leukocytosis;secondary to steroids. monitor closely. s/p I&D of right buttock. has [address] 3 drains removed so far. continue to follow up with surgery for dressing change. HBA1C is 11.3. Diabetic education provided diabetic nurse educator. Dietary education given. and continue humilin 70/30.dosage increased today. Upon discharge patient will follow up with PMD Dr. Vallecillo. Attending/Attestation - Attestation I have personally seen and examined this patient.: Yes I have fully participated in the care of the patient.: Yes I have reviewed all pertinent clinical information, including history, physical exam and plan: Yes
--- NOTE | 2016-05-11 12:39 | CP.PCM.PN ---
Subjective - Date & Time of Evaluation Date of Evaluation: 05/11/16 Time of Evaluation: 12:35 - Subjective Subjective: SURGICAL PROGRESS NOTE FOR DR. SIMMONS Pt seen and examined at bedside. Yesterday pt developed rash on thighs that was occasionally pruritic. Today, rash is improving. Pt denies having any rectal pain. He is tolerating diet and is having regular BMs. Objective - Vital Signs/Intake and Output Vital Signs (last 24 hours): Temp Pulse Resp BP Pulse Ox 97.7 F 74 18 158/89 H 96 05/11/16 08:56 05/11/16 08:56 05/11/16 08:56 05/11/16 08:56 05/11/16 08:56 Intake and Output: 05/11/16 05/11/16 06:59 18:59 Intake Total 1080 Output Total 600 Balance 480 - Medications Medications: Current Medications Acetaminophen (Tylenol 325mg Tab) 650 mg PO Q6H PRN PRN Reason: Pain, moderate (4-7) Albuterol/Ipratropium (Duoneb 3 Mg/0.5 Mg (3 Ml) Ud) 3 ml IH [id number] PRN PRN Reason: Shortness of Breath Last Admin: 05/06/16 21:29 Dose: 3 ml Arformoterol Tartrate (Brovana) 15 mcg IH [id number] [facility] Last Admin: 05/11/16 07:56 Dose: 15 mcg Budesonide (Pulmicort Respules) 1 mg IH [id number] [facility] Last Admin: 05/11/16 07:56 Dose: 1 mg Clindamycin HCl (Cleocin) 150 mg PO Q6 JT PRN Reason: Protocol Last Admin: 05/11/16 11:54 Dose: 150 mg Diphenhydramine HCl (Benadryl) 25 mg PO Q12 PRN PRN Reason: Insomnia Last Admin: 05/11/16 05:51 Dose: 25 mg Enoxaparin Sodium (Lovenox) 40 mg SC DAILY [facility] PRN Reason: Protocol Last Admin: 05/11/16 09:43 Dose: 40 mg Hydrocortisone (Cortizone 1% Cream) 0 gm TOP BID [facility] Last Admin: 05/11/16 11:01 Dose: 1 appl Insulin Human Regular (Humulin R Med) 0 units SC ACHS [facility] PRN Reason: Protocol Last Admin: 05/11/16 11:54 Dose: 7 units Pantoprazole Sodium (Protonix Ec Tab) 40 mg PO DAILY [facility] Last Admin: 05/11/16 09:43 Dose: Not Given Tiotropium [place] (Spiriva) 18 mcg IH DAILY [facility] Last Admin: 05/11/16 09:43 Dose: 18 mcg - Labs Labs: 05/11/16 06:15 05/11/16 06:15 PT 11.9 Seconds (9.9-11.8) H 05/03/16 14:30 INR 1.10 (0.93-1.08) H 05/03/16 14:30 APTT 30.7 Seconds (23.7-30.8) 05/03/16 14:30 - Constitutional Appears: Non-toxic, No Acute Distress - Head Exam Head Exam: ATRAUMATIC - ENT Exam ENT Exam: Mucous Membranes Moist - Respiratory Exam Respiratory Exam: absent: Accessory Muscle Use, Respiratory Distress - GI/Abdominal Exam GI & Abdominal Exam: Soft, Normal Bowel Sounds. absent: Distended, Firm, Guarding, Rigid, Tenderness - Extremities Exam Extremities Exam: absent: Pedal Edema - Neurological Exam Neurological Exam: Alert, Awake, Oriented x3 - Psychiatric Exam Psychiatric exam: Normal Affect, Normal Mood - Skin Skin Exam: Dry, Intact, Normal Color, Warm Additional comments: macular blanching rash on anterior thighs. Assessment and Plan - Assessment and Plan (Free Text) Assessment: 65 y/o M w/ multiple abscess POD #6 s/p I&D in OR. - Pt switched to PO abx - pain management - pt will be d/c with one drain in place. He is asked to f/u with Dr. Simmons as o/p. Safe to d/c from surgical point - cont medical management Discussed w/ Dr. Simmons for further recs Arti Amin PGY1
[2016-05-11] MEDS ORDERED: Insulin Human NPH/Reg 70/30 Vial(3 ml) SC SCH (17:13)
--- NOTE | 2016-05-11 18:34 | CP.PCM.PN ---
Subjective - Date & Time of Evaluation Date of Evaluation: 05/11/16 Time of Evaluation: 11:10 - Subjective Subjective: Patient developed maculopapular rash on the trunk, lower extremities, with some pruritus. He is being given Benadryl which is making the pruritus better. He has no fevers overnight. His gluteal area has less pain, less drainage. No diarrhea, no nausea, no headache, no chest pain. Objective - Vital Signs/Intake and Output Vital Signs (last 24 hours): Temp Pulse Resp BP Pulse Ox 97.7 F 74 18 158/89 H 96 05/11/16 08:56 05/11/16 08:56 05/11/16 08:56 05/11/16 08:56 05/11/16 08:56 Intake and Output: 05/11/16 05/11/16 06:59 18:59 Intake Total 1080 600 Output Total 600 Balance 480 600 - Medications Medications: Current Medications Acetaminophen (Tylenol 325mg Tab) 650 mg PO Q6H PRN PRN Reason: Pain, moderate (4-7) Albuterol/Ipratropium (Duoneb 3 Mg/0.5 Mg (3 Ml) Ud) 3 ml IH [id number] PRN PRN Reason: Shortness of Breath Last Admin: 05/06/16 21:29 Dose: 3 ml Arformoterol Tartrate (Brovana) 15 mcg IH [id number] COUNTS INCLUDE 234 BEDS AT THE [facility] Last Admin: 05/11/16 07:56 Dose: 15 mcg Budesonide (Pulmicort Respules) 1 mg IH [id number] COUNTS INCLUDE 234 BEDS AT THE [facility] Last Admin: 05/11/16 07:56 Dose: 1 mg Clindamycin HCl (Cleocin) 150 mg PO Q6 JT PRN Reason: Protocol Last Admin: 05/11/16 17:20 Dose: 150 mg Diphenhydramine HCl (Benadryl) 25 mg PO Q12 PRN PRN Reason: Insomnia Last Admin: 05/11/16 05:51 Dose: 25 mg Enoxaparin Sodium (Lovenox) 40 mg SC DAILY COUNTS INCLUDE 234 BEDS AT THE [facility] PRN Reason: Protocol Last Admin: 05/11/16 09:43 Dose: 40 mg Hydrocortisone (Cortizone 1% Cream) 0 gm TOP BID COUNTS INCLUDE 234 BEDS AT THE [facility] Last Admin: 05/11/16 17:21 Dose: 1 appl Insulin Human Regular (Humulin R Med) 0 units SC ACHS COUNTS INCLUDE 234 BEDS AT THE [facility] PRN Reason: Protocol Last Admin: 05/11/16 17:21 Dose: 3 units Pantoprazole Sodium (Protonix Ec Tab) 40 mg PO DAILY COUNTS INCLUDE 234 BEDS AT THE [facility] Last Admin: 05/11/16 09:43 Dose: Not Given Tiotropium [place] (Spiriva) 18 mcg IH DAILY COUNTS INCLUDE 234 BEDS AT THE [facility] Last Admin: 05/11/16 09:43 Dose: 18 mcg - Labs Labs: 05/11/16 06:15 05/11/16 06:15 PT 11.9 Seconds (9.9-11.8) H 05/03/16 14:30 INR 1.10 (0.93-1.08) H 05/03/16 14:30 APTT 30.7 Seconds (23.7-30.8) 05/03/16 14:30 - Constitutional Appears: Non-toxic, No Acute Distress - Head Exam Head Exam: NORMAL INSPECTION - ENT Exam ENT Exam: Mucous Membranes Moist - Neck Exam Neck Exam: absent: Lymphadenopathy, Meningismus - Respiratory Exam Respiratory Exam: Decreased Breath Sounds - Cardiovascular Exam Cardiovascular Exam: +S1, +S2 - GI/Abdominal Exam GI & Abdominal Exam: Soft. absent: Tenderness - Back Exam Additional comments: gluteal area with dressings in place - Skin Skin Exam: Rash (maculopapular on the trunk and legs, blanching) Assessment and Plan - Assessment and Plan (Free Text) Plan: Assessment Sepsis secondary to gluteal abcess on the right in a patient with a history of skin abscesses, growing methicilin-resistant Staph aureus, S/P surgical drainage POD #7, clinically improving Maculopapular rash probably drug eruption DM COPD HTN S/P cholecystectomy obesity with BMI 34 Plan as discussed with Dr. Valdes, Vancomycin has been discontinued; it was changed to Clindamycin but it has been noted that on the sensitivities there is Erythromycin resistance and even though in vitro the MRSA is sensitive to Clindamycin, there might be inducible resistance - will change Clindamycin to Doxycycline; continue BActroban for the nares Will continue to follow clinically
[2016-05-11 20:26] VITALS: RESP 20
[2016-05-12 07:07] LABS: ADD MANUAL DIFF? NO
[2016-05-12] MEDS: Budesonide 0.5 mg/2 ml Inhal Susp UD IH SCH (07:10)
[2016-05-12] MEDS: Arformoterol 15 mcg/2 ml Inh Sol IH SCH (07:10)
[2016-05-12 07:33] LABS: BLOOD UREA NITROGEN 16 mg/dL (7-21); CALCIUM 8.8 mg/dL (8.4-10.5); CARBON DIOXIDE 30 mmol/L (21-33); CHLORIDE 100 mmol/L (98-107); GFR AFRICAN-AMERICAN > 60; GLUCOSE,RANDOM 116 mg/dL (70-110); POTASSIUM 4.2 mmol/L (3.6-5.0); SODIUM 137 mmol/L (132-148)
[2016-05-12 07:41] LABS: BASO # 0.04 K/mm3 (0.0-2.0); BASO % 0.3 % (0.0-3.0); EOS # 1.1 (0.0-0.7); EOS % 9.1 % (1.5-5.0); GRAN # 7.76 (1.4-6.5); GRAN % 62.9 % (50.0-68.0); HEMATOCRIT 38.5 % (42.0-52.0); LYMPH # 2.8 (1.2-3.4); LYMPH % 22.5 % (22.0-35.0); MEAN CELL VOLUME 90.2 fL (80.0-105.0); MEAN CORPUSCULAR HEMOGLOBIN 29.7 pg (25.0-35.0); MEAN PLATELET VOLUME 9.7 fl (7.0-11.0); MONO # 0.6 (0.1-0.6); MONO % 5.2 % (1.0-6.0); PLATELET COUNT 480 10^3/uL (120.0-450.0); RED CELL DISTRIBUTION WIDTH 13.1 % (11.5-14.5); WHITE BLOOD COUNT 12.4 10^3/ul (4.5-11.0)
--- NOTE | 2016-05-12 08:12 | CP.PCM.PN ---
Subjective - Date & Time of Evaluation Date of Evaluation: 05/12/16 Time of Evaluation: 08:08 - Subjective Subjective: SURGERY PROGRESS NOTE FOR DR. SIMMONS Pt seen and examined at bedside. No acute events overnight. Pt states rash on thighs and chest is improving and is not pruritic today. Denies having any rectal pain, N/V/D/C. Objective - Vital Signs/Intake and Output Vital Signs (last 24 hours): Temp Pulse Resp BP Pulse Ox 97.9 F 78 20 134/83 97 05/11/16 16:00 05/11/16 16:00 05/11/16 16:00 05/11/16 16:00 05/11/16 16:00 - Medications Medications: Current Medications Acetaminophen (Tylenol 325mg Tab) 650 mg PO Q6H PRN PRN Reason: Pain, moderate (4-7) Albuterol/Ipratropium (Duoneb 3 Mg/0.5 Mg (3 Ml) Ud) 3 ml IH [id number] PRN PRN Reason: Shortness of Breath Last Admin: 05/06/16 21:29 Dose: 3 ml Arformoterol Tartrate (Brovana) 15 mcg IH [id number] [facility] Last Admin: 05/12/16 07:10 Dose: 15 mcg Budesonide (Pulmicort Respules) 1 mg IH [id number] [facility] Last Admin: 05/12/16 07:10 Dose: 1 mg Diphenhydramine HCl (Benadryl) 25 mg PO Q12 PRN PRN Reason: Insomnia Last Admin: 05/11/16 21:47 Dose: 25 mg Doxycycline Hyclate (Doryx) 100 mg PO Q12 JT PRN Reason: Protocol Last Admin: 05/11/16 21:47 Dose: 100 mg Enoxaparin Sodium (Lovenox) 40 mg SC DAILY [facility] PRN Reason: Protocol Last Admin: 05/11/16 09:43 Dose: 40 mg Hydrocortisone (Cortizone 1% Cream) 0 gm TOP BID [facility] Last Admin: 05/11/16 17:21 Dose: 1 appl Insulin Human Regular (Humulin R Med) 0 units SC ACHS [facility] PRN Reason: Protocol Last Admin: 05/11/16 21:48 Dose: Not Given Pantoprazole Sodium (Protonix Ec Tab) 40 mg PO DAILY [facility] Last Admin: 05/11/16 09:43 Dose: Not Given Tiotropium [place] (Spiriva) 18 mcg IH DAILY JT Last Admin: 05/11/16 09:43 Dose: 18 mcg - Labs Labs: 05/12/16 06:30 05/12/16 06:30 PT 11.9 Seconds (9.9-11.8) H 05/03/16 14:30 INR 1.10 (0.93-1.08) H 05/03/16 14:30 APTT 30.7 Seconds (23.7-30.8) 05/03/16 14:30 - Constitutional Appears: Non-toxic, No Acute Distress - Head Exam Head Exam: ATRAUMATIC - ENT Exam ENT Exam: Mucous Membranes Moist - Respiratory Exam Respiratory Exam: absent: Accessory Muscle Use, Respiratory Distress - GI/Abdominal Exam GI & Abdominal Exam: Soft, Normal Bowel Sounds. absent: Distended, Firm, Guarding, Rigid, Tenderness - Neurological Exam Neurological Exam: Alert, Awake, Oriented x3 - Psychiatric Exam Psychiatric exam: Normal Affect, Normal Mood - Skin Skin Exam: Dry, Intact, Normal Color, Warm Assessment and Plan - Assessment and Plan (Free Text) Assessment: 65 y/o M w/ multiple abscess POD #7 s/p I&D in OR. - Pt switched to PO abx - All drains removed. Pt is to follow up with Dr. Simmons outpt. Safe to discharge from surgical point. - cont medical management Discussed w/ Dr. Simmons for further recs Arti Amin PGY1
[2016-05-12] MEDS: Insulin Reg-MEDIUM-Coverage SC SCH ×2 (08:23→12:02)
[2016-05-12 09:04] VITALS: BP 131/76; PULSE 100; TEMP 98; O2SAT 98
[2016-05-12] MEDS: Insulin Human NPH/Reg 70/30 Vial(3 ml) SC SCH (10:00)
[2016-05-12] MEDS: Enoxaparin 40 mg Syringe SC SCH (12:00)
[2016-05-12] MEDS: Tiotropium 18 mcg Cap For Inhalation IH SCH (12:01)
[2016-05-12] MEDS: Pantoprazole 40 mg EC Tab PO SCH (12:04)
[2016-05-12] MEDS: Hydrocortisone 1% Cream (30 GM) TOP SCH (12:09)
--- NOTE | 2016-05-12 12:58 | CP.PCM.DIS ---
<Grayson Patel - Last Filed: 05/12/16 17:14> Provider - Provider Date of Admission: 05/03/16 16:39 Attending physician: Ailyn Valdes MD Primary care physician: Sunil Vallecillo MD Consults: Dr. Russell Calero Time Spent in preparation of Discharge (in minutes): 35 Hospital Course - Lab Results Lab Results: Micro Results 05/03/16 16:45 Abscess - Buttock-Left Gram Stain - Final 05/03/16 16:45 Abscess - Buttock-Left Wound Culture - Final Methicillin Resistant S Aureus Most Recent Lab Values WBC 12.4 10^3/ul (4.5-11.0) H D 05/12/16 06:30 RBC 4.27 10^6/uL (3.5-6.1) 05/12/16 06:30 Hgb 12.7 gm/dL (14.0-18.0) L 05/12/16 06:30 Hct 38.5 % (42.0-52.0) L 05/12/16 06:30 MCV 90.2 fL (80.0-105.0) 05/12/16 06:30 MCH 29.7 pg (25.0-35.0) 05/12/16 06:30 MCHC 33.0 g/dl (31.0-37.0) 05/12/16 06:30 RDW 13.1 % (11.5-14.5) 05/12/16 06:30 Plt Count 480 10^3/uL (120.0-450.0) H 05/12/16 06:30 MPV 9.7 fl (7.0-11.0) 05/12/16 06:30 Gran % 62.9 % (50.0-68.0) 05/12/16 06:30 Lymph % (Auto) 22.5 % (22.0-35.0) 05/12/16 06:30 [place] % (Auto) 5.2 % (1.0-6.0) 05/12/16 06:30 Eos % (Auto) 9.1 % (1.5-5.0) H 05/12/16 06:30 Baso % (Auto) 0.3 % (0.0-3.0) 05/12/16 06:30 Gran # 7.76 (1.4-6.5) H 05/12/16 06:30 Lymph # 2.8 (1.2-3.4) 05/12/16 06:30 [place] # 0.6 (0.1-0.6) 05/12/16 06:30 Eos # 1.1 (0.0-0.7) H 05/12/16 06:30 Baso # 0.04 K/mm3 (0.0-2.0) 05/12/16 06:30 Neutrophils % (Manual) 83 % (50.0-70.0) H 05/11/16 06:15 Band Neutrophils % 3 % (0-2) H 05/11/16 06:15 Lymphocytes % (Manual) 11 % (22.0-35.0) L 05/11/16 06:15 Monocytes % (Manual) 1 % (1.0-6.0) 05/11/16 06:15 Eosinophils % (Manual) 2 % (0.0-3.0) 05/11/16 06:15 Platelet Evaluation High (NORMAL) 05/11/16 06:15 Hypochromasia Slight 05/11/16 06:15 Anisocytosis (manual) 1+ 05/11/16 06:15 PT 11.9 Seconds (9.9-11.8) H 05/03/16 14:30 INR 1.10 (0.93-1.08) H 05/03/16 14:30 APTT 30.7 Seconds (23.7-30.8) 05/03/16 14:30 pO2 45 mm/Hg (30-55) 05/03/16 19:30 VBG pH 7.38 (7.32-7.43) 05/03/16 19:30 VBG pCO2 49.0 (40-60) 05/03/16 19:30 VBG HCO3 29.0 mmol/l (21-28) H 05/03/16 19:30 VBG Total CO2 30.5 mmol.L (22-28) H 05/03/16 19:30 VBG O2 Sat (Calc) 80.9 % (40-65) H 05/03/16 19:30 VBG Base Excess 3.0 mmol/L (0.0-2.0) H 05/03/16 19:30 VBG Potassium 4.5 mmol/L (3.6-5.2) 05/03/16 19:30 Sodium 133.0 mmol/L (132-148) 05/03/16 19:30 Chloride 98.0 mmol/L (98-107) 05/03/16 19:30 Glucose 206 mg/dl (75-110) H 05/03/16 19:30 Lactate 1.7 mmol/L (0.7-2.1) 05/03/16 19:30 FiO2 21.0 % 05/03/16 19:30 Sodium 137 mmol/L (132-148) 05/12/16 06:30 Potassium 4.2 mmol/L (3.6-5.0) 05/12/16 06:30 Chloride 100 mmol/L (98-107) 05/12/16 06:30 Carbon Dioxide 30 mmol/L (21-33) 05/12/16 06:30 Anion Gap 11 (10-20) 05/12/16 06:30 BUN 16 mg/dL (7-21) 05/12/16 06:30 Creatinine 0.8 mg/dL (0.5-1.4) 05/12/16 06:30 Est GFR ( Amer) > 60 05/12/16 06:30 Est GFR (Non-Af Amer) > 60 05/12/16 06:30 POC Glucose (mg/dL) 254 mg/dL (65-110) H 05/12/16 11:24 Random Glucose 116 mg/dL (70-110) H 05/12/16 06:30 Hemoglobin A1c 11.3 % (4.2-6.5) H 05/03/16 16:00 Calcium 8.8 mg/dL (8.4-10.5) 05/12/16 06:30 Phosphorus 2.8 mg/dL (2.5-4.5) 05/03/16 14:30 Magnesium 2.0 mg/dL (1.7-2.2) 05/03/16 14:30 Total Bilirubin 0.4 mg/dL (0.2-1.3) 05/11/16 06:15 AST 36 U/L (15-59) 05/11/16 06:15 ALT 45 U/L (7-56) 05/11/16 06:15 Alkaline Phosphatase 136 U/L (38-133) H 05/11/16 06:15 Total Protein 7.0 g/dL (5.8-8.3) 05/11/16 06:15 Albumin 3.0 g/dL (3.0-4.8) 05/11/16 06:15 Globulin 4.0 gm/dL 05/11/16 06:15 Albumin/Globulin Ratio 0.8 (1.1-1.8) L 05/11/16 06:15 Procalcitonin 0.15 NG/ML (0.19-0.49) L 05/03/16 16:00 Venous Blood Potassium 4.5 mmol/L (3.6-5.2) 05/03/16 19:30 Vancomycin Trough 5.5 ug/mL (5.0-10.0) 05/07/16 08:03 HIV 1&2 Ag/Ab, 4th Gen Nonreactive (Nonreactive) 05/03/16 16:00 - Hospital Course Hospital Course: HPI: 65 yo male with PMH of asthma, copd, emphysema, diabetes presented to ED with multiple skin abscess. Patient states that it started about 1 week ago after moving into his new apartment and the began to harden. He has never had this happen to her before. He states that he went to his PMD and was given Cipro and was told to use warm compresses. He states that the abscess on his right buttock began to drain and he returned to PMD. PMD told him to go to ED. The cysts are tender with pressure or movement. He denies any sick contact or any one else with similar presentation. Patient also reports a jock itch in his groin that started after sweating from moving. He denies any bug bites or exposure to insects. He states that he is not on any medications for diabetes. he denies fever, chills, n/v/d/c, urinary symptoms, chest pain, sob. Patient is a 65 y/o M who presented with multiple skin abscesses. An initial CT neck, chest, abdm pelvis- skin and subcutaneous thickening and stranding posterior neck suggestive of cellulitis, no discrete abscess. skin thickening and phlegmon of posterior aspect of right buttock with early abscess formation. An initial chest xray showed persistent mild pulmonary venous congestion. An EKG was performed showing normal sinus rhythm. Surgery was consulted for an I&D of the abscess. He was placed on IV Vancomycin as the abscess grew MRSA and ID was consulted. He developed a diffuse rash and the vancomycin was switched to Clindamycin. He was transitioned to Doxycycline. With Benadryl and IV steroids, the rash improved. During his stay, his A1C was found to be 11.3. The patient was started on insulin and diabetic education was conducted. The patient was taught to self inject insulin. He was found to be non-complaint with his diabetic diet on many occasions due to finding donuts, candy bars, sodas, and cake in his room. The patient was re-counselled on his diet. He was determined medically stable for discharge. He was told to resume home medications except for Cipro which he must discontinue using; he was discharged with Cortisone cream Doxycycline, Hibiclense, Protonix, and Insulin; take 15 units of NPH insulin in the morning and evening; use 1-2 units of regular insulin depending on blood sugar readings as per instructions; keep a diabetic diet and blood sugar log; the clinical informatics educator Jacqueline can be reached at [phone] sxt. [phone]; follow up with your primary care physician and surgeon within a week; if unable to see your primary care physician, follow up with the [facility] at [facility]; if your condition worsens or new symptoms arise, please return to the emergency room. He verbalized understanding and was discharged home. This is a brief summary of the patient's stay at this facility. For more detail , see patient's full chart. - Date & Time of H&P Date of H&P: 05/03/16 Time of H&P: 21:00 Discharge Exam - Head Exam Head Exam: ATRAUMATIC, NORMOCEPHALIC - Eye Exam Eye Exam: EOMI, Normal appearance, PERRL Pupil Exam: NORMAL ACCOMODATION, PERRL - ENT Exam ENT Exam: Mucous Membranes Moist. absent: Normal Oropharynx (poor dentition) - Neck Exam Neck exam: Tenderness Additional comments: cellulitic region on back of neck - Respiratory Exam Respiratory Exam: NORMAL BREATHING PATTERN, UNREMARKABLE. absent: Rales, Rhonchi, Wheezes - Cardiovascular Exam Cardiovascular Exam: REGULAR RHYTHM, +S1, +S2. absent: Gallop, Rubs, Systolic Murmur - GI/Abdominal Exam GI & Abdominal Exam: Normal Bowel Sounds, Soft. absent: Tenderness - Extremities Exam Extremities exam: normal capillary refill, pedal pulses present Additional comments: multiple slow healing lesions - Back Exam Back exam: rash noted (improved ) - Neurological Exam Neurological exam: Alert, CN II-XII Intact, Oriented x3 - Psychiatric Exam Psychiatric exam: Normal Affect, Normal Mood - Skin Skin Exam: Normal Color, Rash (upper thigh, chest, abdomen, and back), Urticaria Discharge Plan - Discharge Medications Prescriptions: Hydrocortisone 1% Cream [Cortizone 1% Cream] 1 tub TOP BID #1 tube Doxycycline Hyclate [Doryx] 100 mg PO Q12 #28 cap Chlorhexidine Gluconate 4% [Hibiclens 4%] 120 ml TOP DAILY #1 bottle Insulin Human Regular-MED [HumuLIN R MED] See Protocol SC ACHS 30 Days Insulin Human (NPH)/Regular [Novolin 70/30 (70/30 units/ml) 10 ml] 15 units SC BID 30 Days Pantoprazole [Protonix EC Tab] 40 mg PO DAILY #30 ect - Follow Up Plan Condition: FAIR Disposition: HOME/ ROUTINE Instructions: MRSA (Methicillin Resistant Staphylococcus Aureus) (GEN), Pneumococcal Vaccine for Adults (GEN), Cellulitis (DC), Cellulitis (GEN), How to Check Your Blood Sugar (GEN), Basic Carbohydrate Counting (GEN), Acute Wound Care (GEN), Surgical Site Infections (GEN), Abscess (GEN), Asthma (DC), Asthma ( GEN) Additional Instructions: 1) You are medically stable for discharge home. 2) Please resume home medications except for Cipro which you must discontinue using. 3) You are discharged with Cortisone cream Doxycycline, Hibiclense, Protonix, and Insulin. 4) Please take 15 units of NPH insulin in the morning and evening. 5) Use 1-2 units of regular insulin depending on blood sugar readings as per instructions.Please keep a diabetic diet and blood sugar log. 6) If you have insulin questions, the clinical informatics educator Jacqueline can bee reached at [phone] sxt. [phone]. 7) Please follow up with your primary care physician and surgeon within a week. If unable to see your primary care physician, follow up with the [facility] at [facility]. 8) If your condition worsens or new symptoms arise, please return to the emergency room. Referrals: [facility] at [facility] [Outside] Sunil Vallecillo MD [Primary Care Provider] - Russell Wagner MD [Staff Provider] - <Ailyn Valdes - Last Filed: 05/12/16 17:50> Provider - Provider Date of Admission: 05/03/16 16:39 Attending physician: Ailyn Valdes MD Primary care physician: Sunil Vallecillo MD Time Spent in preparation of Discharge (in minutes): 35 Hospital Course - Lab Results Lab Results: Micro Results 05/03/16 16:45 Abscess - Buttock-Left Gram Stain - Final 05/03/16 16:45 Abscess - Buttock-Left Wound Culture - Final Methicillin Resistant S Aureus Most Recent Lab Values WBC 12.4 10^3/ul (4.5-11.0) H D 05/12/16 06:30 RBC 4.27 10^6/uL (3.5-6.1) 05/12/16 06:30 Hgb 12.7 gm/dL (14.0-18.0) L 05/12/16 06:30 Hct 38.5 % (42.0-52.0) L 05/12/16 06:30 MCV 90.2 fL (80.0-105.0) 05/12/16 06:30 MCH 29.7 pg (25.0-35.0) 05/12/16 06:30 MCHC 33.0 g/dl (31.0-37.0) 05/12/16 06:30 RDW 13.1 % (11.5-14.5) 05/12/16 06:30 Plt Count 480 10^3/uL (120.0-450.0) H 05/12/16 06:30 MPV 9.7 fl (7.0-11.0) 05/12/16 06:30 Gran % 62.9 % (50.0-68.0) 05/12/16 06:30 Lymph % (Auto) 22.5 % (22.0-35.0) 05/12/16 06:30 [place] % (Auto) 5.2 % (1.0-6.0) 05/12/16 06:30 Eos % (Auto) 9.1 % (1.5-5.0) H 05/12/16 06:30 Baso % (Auto) 0.3 % (0.0-3.0) 05/12/16 06:30 Gran # 7.76 (1.4-6.5) H 05/12/16 06:30 Lymph # 2.8 (1.2-3.4) 05/12/16 06:30 [place] # 0.6 (0.1-0.6) 05/12/16 06:30 Eos # 1.1 (0.0-0.7) H 05/12/16 06:30 Baso # 0.04 K/mm3 (0.0-2.0) 05/12/16 06:30 Neutrophils % (Manual) 83 % (50.0-70.0) H 05/11/16 06:15 Band Neutrophils % 3 % (0-2) H 05/11/16 06:15 Lymphocytes % (Manual) 11 % (22.0-35.0) L 05/11/16 06:15 Monocytes % (Manual) 1 % (1.0-6.0) 05/11/16 06:15 Eosinophils % (Manual) 2 % (0.0-3.0) 05/11/16 06:15 Platelet Evaluation High (NORMAL) 05/11/16 06:15 Hypochromasia Slight 05/11/16 06:15 Anisocytosis (manual) 1+ 05/11/16 06:15 PT 11.9 Seconds (9.9-11.8) H 05/03/16 14:30 INR 1.10 (0.93-1.08) H 05/03/16 14:30 APTT 30.7 Seconds (23.7-30.8) 05/03/16 14:30 pO2 45 mm/Hg (30-55) 05/03/16 19:30 VBG pH 7.38 (7.32-7.43) 05/03/16 19:30 VBG pCO2 49.0 (40-60) 05/03/16 19:30 VBG HCO3 29.0 mmol/l (21-28) H 05/03/16 19:30 VBG Total CO2 30.5 mmol.L (22-28) H 05/03/16 19:30 VBG O2 Sat (Calc) 80.9 % (40-65) H 05/03/16 19:30 VBG Base Excess 3.0 mmol/L (0.0-2.0) H 05/03/16 19:30 VBG Potassium 4.5 mmol/L (3.6-5.2) 05/03/16 19:30 Sodium 133.0 mmol/L (132-148) 05/03/16 19:30 Chloride 98.0 mmol/L (98-107) 05/03/16 19:30 Glucose 206 mg/dl (75-110) H 05/03/16 19:30 Lactate 1.7 mmol/L (0.7-2.1) 05/03/16 19:30 FiO2 21.0 % 05/03/16 19:30 Sodium 137 mmol/L (132-148) 05/12/16 06:30 Potassium 4.2 mmol/L (3.6-5.0) 05/12/16 06:30 Chloride 100 mmol/L (98-107) 05/12/16 06:30 Carbon Dioxide 30 mmol/L (21-33) 05/12/16 06:30 Anion Gap 11 (10-20) 05/12/16 06:30 BUN 16 mg/dL (7-21) 05/12/16 06:30 Creatinine 0.8 mg/dL (0.5-1.4) 05/12/16 06:30 Est GFR ( Amer) > 60 05/12/16 06:30 Est GFR (Non-Af Amer) > 60 05/12/16 06:30 POC Glucose (mg/dL) 254 mg/dL (65-110) H 05/12/16 11:24 Random Glucose 116 mg/dL (70-110) H 05/12/16 06:30 Hemoglobin A1c 11.3 % (4.2-6.5) H 05/03/16 16:00 Calcium 8.8 mg/dL (8.4-10.5) 05/12/16 06:30 Phosphorus 2.8 mg/dL (2.5-4.5) 05/03/16 14:30 Magnesium 2.0 mg/dL (1.7-2.2) 05/03/16 14:30 Total Bilirubin 0.4 mg/dL (0.2-1.3) 05/11/16 06:15 AST 36 U/L (15-59) 05/11/16 06:15 ALT 45 U/L (7-56) 05/11/16 06:15 Alkaline Phosphatase 136 U/L (38-133) H 05/11/16 06:15 Total Protein 7.0 g/dL (5.8-8.3) 05/11/16 06:15 Albumin 3.0 g/dL (3.0-4.8) 05/11/16 06:15 Globulin 4.0 gm/dL 05/11/16 06:15 Albumin/Globulin Ratio 0.8 (1.1-1.8) L 05/11/16 06:15 Procalcitonin 0.15 NG/ML (0.19-0.49) L 05/03/16 16:00 Venous Blood Potassium 4.5 mmol/L (3.6-5.2) 05/03/16 19:30 Vancomycin Trough 5.5 ug/mL (5.0-10.0) 05/07/16 08:03 HIV 1&2 Ag/Ab, 4th Gen Nonreactive (Nonreactive) 05/03/16 16:00 - Hospital Course Hospital Course: attending note; Patient seen and examined with resident. Patient is a 65 year old male with obesity, uncontrolled DM-2, non compliance with medications, asthma, copd, cholecystectomy who got admitted for multiple skin lesions including carbuncle on the nape of neck and right buttock and cellulitis on right thumb. s/p I&D of right buttock. MRSA wound infection. Treated with IV vancomycin. Will be dischrged home with po doxy. All drains removed. dressing instructions given. Follow up with DR. Wagner next week. Had diffuse red rash in back and legs . currently resolved. case discussed with ID in detail. HBA1C is 11.3. Diabetic education provided diabetic nurse educator. Dietary education given. Insulin given. Upon discharge patient will follow up with PMD Dr. Vallecillo. diagnosis; abscess MRSA skin infection DM s/p Incision and drainage
--- NOTE | 2016-05-12 20:40 | CP.PCM.PN ---
Subjective - Date & Time of Evaluation Date of Evaluation: 05/12/16 Time of Evaluation: 10:35 - Subjective Subjective: Comfortable in bed, not in distress, less pain in the gluteal area, improving rash on his trunk and legs. No fevers overnight. Objective - Vital Signs/Intake and Output Vital Signs (last 24 hours): Temp Pulse Resp BP Pulse Ox 98 F 100 H 20 131/76 98 05/12/16 08:00 05/12/16 08:00 05/12/16 08:00 05/12/16 08:00 05/12/16 08:00 Intake and Output: 05/12/16 05/13/16 18:59 06:59 Intake Total 840 Balance 840 - Labs Labs: 05/12/16 06:30 05/12/16 06:30 PT 11.9 Seconds (9.9-11.8) H 05/03/16 14:30 INR 1.10 (0.93-1.08) H 05/03/16 14:30 APTT 30.7 Seconds (23.7-30.8) 05/03/16 14:30 - Constitutional Appears: Non-toxic, No Acute Distress - Head Exam Head Exam: NORMAL INSPECTION - ENT Exam ENT Exam: Mucous Membranes Moist - Neck Exam Neck Exam: absent: Lymphadenopathy, Meningismus - Respiratory Exam Respiratory Exam: Decreased Breath Sounds - Cardiovascular Exam Cardiovascular Exam: +S1, +S2 - GI/Abdominal Exam GI & Abdominal Exam: Soft. absent: Tenderness - Skin Additional comments: decreasing maculopapular rash on the trunk and legs Assessment and Plan - Assessment and Plan (Free Text) Plan: Assessment Sepsis secondary to gluteal abcess on the right in a patient with a history of skin abscesses, growing methicilin-resistant Staph aureus, S/P surgical drainage POD #8, clinically improving Maculopapular rash probably drug eruption DM COPD HTN S/P cholecystectomy obesity with BMI 34 Plan as discussed with Dr. Valdes, Vancomycin has been discontinued; it was changed to Clindamycin but it has been noted that on the sensitivities there is Erythromycin resistance and even though in vitro the MRSA is sensitive to Clindamycin, there might be inducible resistance - continue Doxycycline with outpatient follow up with Surgery and Primary care; continue BActroban for the nares May benefit from chlorhexidine wash at home
--- NOTE | 2016-05-17 10:31 | OP ---
PROCEDURE DATE: 05/05/2016 PREOPERATIVE DIAGNOSIS: Abscess of the right gluteus. POSTOPERATIVE DIAGNOSIS: Abscess of the right gluteus. OPERATION PERFORMED: Incision and drainage. DESCRIPTION OF PROCEDURE: In the operating room, the patient was identified by name, number, procedu re, laterality and my kerry. After the successful timeout, the patient was placed in the lateral posi tion and the area taped up nicely to expose the area. It was a large abscess with multiple puncta. It was opened between the puncta and explored in 4 directions. It did not seem to be related to the rectum. In the most inferior place, a counterincision was made and 4 such incisions were made circum ferentially. Four Penroses were then placed and sutured individually to themselves. The area was th en cleaned, cultured, cleaned with peroxide and lightly packed. The patient taken to recovery room i n good condition after sponge and needle counts were declared correct. Russell Wagner MD cc: [id number] TT: 05/17/2016 10:30:21 belkis
== END 2016-05-12 15:50 | disposition home or self-care (01) | DRG 901 ==
LOC: ED 12:30 → ERH 16:39 → 5RSO 19:53
PROVIDERS: ADMIT Hospitalist; ATTEND Internal Medicine
PROC: 0Y900ZX Drainage of Right Buttock, Open Approach, Diagnostic (ICD-10-PCS; principal; 2016-05-05 16:00)
DX: A41.9 Sepsis, unspecified organism (principal); L02.31 Cutaneous abscess of buttock; E11.65 Type 2 diabetes mellitus with hyperglycemia; J44.9 Chronic obstructive pulmonary disease, unspecified; L02.13 Carbuncle of neck; L03.011 Cellulitis of right finger; B95.62 Methicillin resistant Staphylococcus aureus infection as the cause of diseases classified elsewhere; I10 Essential (primary) hypertension; J45.909 Unspecified asthma, uncomplicated; B35.6 Tinea cruris; E66.9 Obesity, unspecified; L27.0 Generalized skin eruption due to drugs and medicaments taken internally; L29.9 Pruritus, unspecified; Z79.4 Long term (current) use of insulin; Z91.14 Patient's other noncompliance with medication regimen; Z68.34 Body mass index [BMI] 34.0-34.9, adult; Z87.891 Personal history of nicotine dependence

== ENCOUNTER 2016-05-16 15:22 | Emergency (ER) | payer OTHER ==
[2016-05-16 15:22] VITALS: BMI 34.2
[2016-05-16 15:57] VITALS: TEMP 99; O2SAT 99
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
[2016-05-16 16:59] VITALS: BP 140/72; PULSE 92; RESP 18
== END 2016-05-16 16:50 | disposition home or self-care (01) ==
LOC: ED 15:22
DX: Z48.01 Encounter for change or removal of surgical wound dressing (principal)

== ENCOUNTER 2016-05-18 15:29 | Emergency (ER) | payer OTHER ==
[2016-05-18 15:30] VITALS: BMI 34.2
[2016-05-18 15:41] VITALS: BP 160/79; PULSE 94; RESP 18; TEMP 98.7
[2016-05-18 16:23] VITALS: O2SAT 98
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
== END 2016-05-18 18:02 | disposition home or self-care (01) ==
LOC: ED 15:29
DX: Z48.01 Encounter for change or removal of surgical wound dressing (principal); Z51.89 Encounter for other specified aftercare; E11.9 Type 2 diabetes mellitus without complications; I10 Essential (primary) hypertension; Z87.891 Personal history of nicotine dependence